=== PATIENT | female | born 1975 | race Caucasian/White ===

== ENCOUNTER 2018-07-07 21:43 | Emergency (ER) | payer MEDICARE, SELFPAY ==
[2018-07-07 21:45] VITALS: BP 133/78; PULSE 86; RESP 16; TEMP 37; O2SAT 98; BMI 29.1
--- NOTE | 2018-07-08 | ED.VISSUMM ---
- ER Visit Summary Date of Service: 07/08/18 Chief Complaint: Nausea with diffuse body cramps History of Present Illness: The patient is a 42 F history of prior sepsis for which she had amputations of multiple fingers and toes bilaterally. Patient has a colostomy from a colectomy. States that she has had nausea for the last 2 days decreased oral intake and feels dehydrated and cramping. She really denies any specific abdominal pain. No fever. No vomiting. Physical Examination: Stable afebrile. H EENT exam mildly dry mucous members. Neck nontender no lymphadenopathy. Heart regular rate and rhythm no murmur. Lungs bilaterally. Abdomen is soft, nontender, nondistended normal bowel sounds no peritoneal signs. Back nontender. She is moving all 4 extremities. All of her toes on both feet have been amputated. Multiple fingers on both hands been amputated. Neurologically she is awake and alert with no focal motor deficits. Test Results: Chemistry panel unremarkable gap is 9. Creatinine 0.6. Emergency Department Course and Treatment: Patient be treated with IV fluids and IV Phenergan. She will be given 1 dose of gabapentin which she normally takes with some she states still it several days ago and she has been out. She uses for her neuropathies. Treatment Plan: Repeat exam patient doing well. She will be discharged. Disposition: Discharge Impression: Nausea with diarrhea and dehydration secondary to viral syndrome Acute on chronic neuropathy pain This note was generated with [employer] dictation software. It may contain incorrect words, spelling, and punctuation that were not noted in review of the chart prior to signing ED Disposition - Plan for ED Patient: Chief Complaint: Weakness Referrals: Jim Mcfarland III, MD [Primary Care Provider] -
[2018-07-08] MEDS: proMETHazine 25 MG/ML Syringe 12.5 MG IV (00:24)
[2018-07-08] MEDS: 0.9% Normal Saline 1,000 ML 1000 ML IV (00:24)
[2018-07-08 00:43] LABS: Anion Gap 9 (5-15); BUN 15 mg/dL (7-18); Calcium,Total 7.9 mg/dL (8.5-10.1); Chloride 109 mmol/L (98-107); EST Glomerular Filtration Rate 117 mL/min (>60); Est Glom Filt Rate - Afr Amer 141 mL/min (>60); Estimated Creatinine Clearance 93.11 ml/min; Glucose 85 mg/dL (74-106); Potassium 3.8 mmol/L (3.5-5.1); Sodium Level 141 mmol/L (136-145)
[2018-07-08] MEDS: Gabapentin 600 MG Tablet PO (00:57)
[2018-07-08 02:33] VITALS: RESP 16; O2SAT 97
--- NOTE | 2018-07-08 03:19 | ED.DEP ---
ED Disposition - Plan for ED Patient: Disposition: Home or Assisted Living Chief Complaint: Weakness Instructions: ED Viral Syndrome Prescriptions: Gabapentin [Neurontin Solution] 300 mg PO TIDCM #20 ml Referrals: Jim Mcfarland III, MD [Primary Care Provider] - 3-5 Days if not improving Additional Instructions: Plenty of fluids and rest. Follow-up your primary care physician.
[2018-07-08 03:25] VITALS: BP 132/86; PULSE 78; RESP 16; O2SAT 100
[2018-07-08 06:36] VITALS: RESP 20
== END 2018-07-08 07:12 | disposition home or self-care (01) ==
PROVIDERS: Emergency Provider Emergency Medicine; Family Provider Family Medicine; PCP Family Medicine
DX: B34.9 Viral infection, unspecified (principal); R11.0 Nausea; R19.7 Diarrhea, unspecified; E86.0 Dehydration; E11.40 Type 2 diabetes mellitus with diabetic neuropathy, unspecified; K21.9 Gastro-esophageal reflux disease without esophagitis; Z93.3 Colostomy status; Z86.19 Personal history of other infectious and parasitic diseases; Z89.022 Acquired absence of left finger(s); Z89.021 Acquired absence of right finger(s); Z89.422 Acquired absence of other left toe(s); Z89.421 Acquired absence of other right toe(s); Z90.49 Acquired absence of other specified parts of digestive tract; Z79.899 Other long term (current) drug therapy; Z72.0 Tobacco use
CPT/HCPCS: 36591; 80048; 96374; 99284; J7030; A4216

== ENCOUNTER 2018-07-31 21:56 | Inpatient (IN) | payer MEDICARE, SELFPAY ==
[2018-07-31 21:57] VITALS: BP 94/55; PULSE 93; RESP 18; TEMP 36.5; O2SAT 98; BMI 25.4
[2018-07-31 23:09] LABS: Absolute Lymphocyte Count 0.68 X10^3/ul (0.83-4.51); Absolute Neutrophil Count 17.3 X10^3/uL (2.0-7.7); Basophil# 0.03 X10^3/uL; Basophil% 0.2 % (0-1); Eosinophils% 1.1 % (0-5); Hematocrit 34.5 % (37-47); Hemoglobin 11.8 g/dl (12.0-15.0); Lymphocyte # 0.68 X10^3/ul (4.0); Lymphocyte % 3.6 % (19-41); Mean Corp Hgb Conc 34.2 g/gl (32-36); Mean Corpuscular Hgb 27.2 pg (27.0-32.0); Mean Corpuscular Volume 79.5 fL (81-99); Mean Platelet Vol. 11.2 fl (6.2-12.0); Monocyte# 0.66 X10^3/uL; Monocyte% 3.5 % (0-10); Neutrophil # 17.25 X10^3/uL (2.7-7.7); Neutrophil % 90.7 % (47-70); Platelet Count 347 K/mm3 (150-450); RBC Distribution Width SD 45.5 fl (35.1-43.9); Red Blood Count 4.34 M/mm3 (4.2-5.4)
[2018-07-31 23:20] LABS: Anion Gap 17 (5-15); BUN 47 mg/dL (7-18); BUN/Creat Ratio 12.5 RATIO (10-20); Chloride 91 mmol/L (98-107); Creatinine, Serum 3.77 mg/dL (0.55-1.02); EST Glomerular Filtration Rate 14 mL/min (>60); Est Glom Filt Rate - Afr Amer 17 mL/min (>60); Estimated Creatinine Clearance 14.82 ml/min; Glucose 127 mg/dL (74-106); Lactic Acid 1.8 mmol/L (0.4-2.0); Potassium 1.8 mmol/L (3.5-5.1); Sodium Level 130 mmol/L (136-145)
--- NOTE | 2018-07-31 23:21 | ED.RN ---
lab called with critical lab results. potassium level 1.8. Dr. Liu made aware. no new orders at this time
[2018-07-31] MEDS: Ondansetron 4 MG/2 ML Vial IV (23:27)
[2018-07-31] MEDS: HYDROmorphone 1 MG/ML Syringe IV (23:27)
[2018-07-31 23:43] LABS: POSITIVE COUNT NO; POSITIVE DIFFERENTIAL NO; POSITIVE MORPHOLOGY NO
[2018-08-01] VITALS (16 sets, daily range): BP systolic 91–110; BP diastolic 40–59; PULSE 64–95; RESP 16–18; TEMP 36.7–37.1; O2SAT 94–100; BMI 25.9; BMI 26.0
--- NOTE | 2018-08-01 00:19 | ED.VISSUMM ---
- ER Visit Summary Date of Service: 08/01/18 Chief Complaint: [Redness and swelling left elbow] History of Present Illness: The patient is a 42 F [presents the emergency department with redness and swelling to her left elbow times week and a half. Patient denies any fevers. Patient also has had some ulcerations develop on her left hip which have been chronic. She denies any chest pain. She denies any abdominal pain. 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 Patient has had prior colectomy due to perforated colon. Patient does have an ileostomy.] Physical Examination: [HEENT-PERRLA, EOMI. Cranial nerves II through XII grossly intact. TMs clear. Mucous membranes slightly dry. No adenopathy. Cardiovascular-regular rate and rhythm without murmur or ectopy Lungs-clear to auscultation, chest wall stable without crepitus or subcu emphysema Abdomen-normoactive bowel sounds, soft, nontender, no rebound or rigidity, no peritoneal signs. Extremities-intact ?4, normal range of motion, normal pulses. Patient's digits on her hands have been amputated and toes have been amputated. Patient does have erythema and soft tissue swelling about the left elbow. She has a small ulceration over the olecranon but no drainage noted from it. No fluctuant masses noted. She is neurovascular intact. Test Results: [CBC with differential obtained showed a white count of 19,000, hemoglobin 11.8, hematocrit 34, platelets 347. Chemistry showed a sodium 130, potassium 1.8, chloride 91, CO2 22, glucose 127, BUN 47, creatinine 3.77. Lactate was 1.8.] Emergency Department Course and Treatment: [Patient was ordered Unasyn 3 g IV and blood cultures were ordered. Patient was given Dilaudid and Zofran for pain. Patient was ordered potassium chloride 40 mEq p.o. Patient was given a liter normal same fluid bolus.] Treatment Plan: [Admit for IV antibiotics and hydration as well as potassium replacement.] Disposition: [Admit] Impression: [Cellulitis left elbow Acute renal failure Hypokalemia] This note was generated with [employer] dictation software. It may contain incorrect words, spelling, and punctuation that were not noted in review of the chart prior to signing ED Disposition - Plan for ED Patient: Chief Complaint: Cellulitis Referrals: Jim Mcfarland III, MD [Primary Care Provider] -
--- NOTE | 2018-08-01 00:37 | NURSING ---
Called [facility] charge nurseselina to send patient to the floor.
[2018-08-01] MEDS: 0.9% Normal Saline 1,000 ML 999 ML IV (00:42)
--- NOTE | 2018-08-01 02:32 | HP.PCM_ITS ---
Problem List (1) Hypokalemia Status: Acute (2) Cellulitis of left elbow Status: Acute (3) Multiple wounds Status: Chronic (4) Acute renal failure Status: Acute History of Present Illness Date of Admission: 08/01/18 Chief Complaint: Redness, swelling and tenderness of left elbow. 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 She denies any fever or chills. 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) Hypothyroidism (Chronic) Depression (Chronic) Anemia (Chronic) Allergies morphine Adverse Reaction (Verified 07/31/18 21:59) Nausea Home Medications: Ambulatory Orders Medication Instructions Recorded Esomeprazole Mag Trihydrate 40 mg PO DAILY 12/25/13 [Nexium] Levothyroxine [Synthroid] 50 mcg PO DAILY@0600 #30 tablet 02/04/14 Gabapentin [Neurontin] 1,200 mg PO TID 03/13/14 proMETHazine tablet [Phenergan 25 mg PO Q6H PRN PRN #12 tablet 11/30/14 tablet] Hydrochlorothiazide [Hctz] 25 mg PO DAILY 06/12/15 Duloxetine Hcl [Cymbalta] 30 mg PO DAILY 07/21/15 Sumatriptan Succinate [Imitrex] 50 mg PO PRN PRN 07/21/15 Ibuprofen [Motrin Ib] 400 - 600 mg PO 4X/DAY PRN #1 06/08/16 tablet Surgical History: - - Laser surgery for genital warts. hemorrhoidectomy. fistulectomy. EGD. IUD placement. total colectomy with ileostomy. mid-level amputations of fingers and toes following pressure-support treatments for sepsis. tracheostomy. incision and drainage and excisional debridement including muscle post-traumatic hematoma/seroma left hip/lateral thigh extending onto anterior thigh and posterior thigh and gluteal area (750 cm2) in 01/08. excisional debridement nonhealing ulcer left hip with STSG reconstruction from left gluteal area (60 cm2) and placement of NPWT on 07/28/15. Smoking Status: Current every day smoker - Smokes cigarettes. Alcohol: Occasional - *Family History Paternal History Items: Heart Disease Maternal History Items: No pertinent history, - - Leesa-Danlos syndrome Review of Systems Constitutional: Denies: Chills, Fever, Weight Change HEENT: Denies: Head Aches, Sinus Congestion, Sinus Drainage Cardiovascular: Denies: Chest Pain, Palpitations Respiratory: Reports: Cough Gastrointestinal: Denies: Abdominal Pain, Nausea, Vomiting Genitourinary: Denies: Dysuria Musculoskeletal: Reports: - - Left elbow pain, - Skin: Reports: Skin Changes - Redness of left elbow; wound on left posterior hip ; multiple wounds on right posterio- lateral hip; ileostomy present Neurological: Denies: Numbness, Tingling, Focal weakness Psychiatric: Denies: Anxiety, Depression, Homicidal Ideations, Suicidal Ideations Hematologic/ Lymphatic: Denies: Easy Bruising, Easy Bleeding VTE Information - Inpt Only VTE Present on Admission: No VTE Mechan Device Prophylaxis: None VTE Pharm Prophylaxis ordered?: Yes Patient Problems: Active and Suspected Problems Hypokalemia (Acute) Cellulitis of left elbow (Acute) Acute renal failure (Acute) - Physical Exam General: Alert, Oriented x3, Cooperative HEENT: Atraumatic, PERRLA, EOMI, Normocephalic Neck: Supple, No JVD, Negative Carotid Bruits Lungs: Clear to auscultation, Normal air movement Cardiovascular: Regular rate, No murmurs Abdomen: Soft, - - Ostomy bag with greenish looking loose stools. Extremities: Tenderness - Posterior elbow, - - Loss of all toes on extremities Skin: Ulcer/ Wound - Right posterior hip with 1.5?1.5 cm pressure ulcer; left posterior lateral hip with multiple ulcer; largest of about 1.8?1 inch centimeters., - Lymphatic: No Cervical, Supraclavicular, or Inguinal Adenopathy Neurological: Cranial nerves II-XII grossly intact Psych/Mental Status: Normal Affect Vital Signs Temp Pulse Resp BP Pulse Ox 98.2 F 85 18 91/52 L 95 08/01/18 01:10 08/01/18 01:25 08/01/18 01:10 08/01/18 01:10 08/01/18 01:37 Oxygen Delivery Method Room Air Weight: 62.3 kg Body Mass Index (BMI) 25.9 Assessment/Plan All Active Problems Hypokalemia (Acute) Cellulitis of left elbow (Acute) Acute renal failure (Acute) Foot ulcer, right (Acute) The patient is a 42 year old F with a significant history of MRSA; Leesa- Danlos syndrome, previous colostomy due to perforated colon; ileostomy; 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 Cellulitis of left elbow Patient received Unasyn in the emergency department. Because of history of MRSA vancomycin ordered. Clindamycin ordered for possible strep toxins. As needed oxycodone for pain Blood cultures are pending. Hypokalemia Potassium on admission was 1.8. This may be likely to ileostomy output. Unlikely due to alcoholism; since magnesium is elevated. Potassium supplements ordered; IV and p.o. Trend BMP. Acute renal failure Creatinine on admission was 3.77 Her baseline creatinine is less than 1 Urine sodium and urine creatinine ordered for FENA Received normal saline bolus at emergency department. Gentle IV hydration. Hydrochlorothiazide held Avoid nephrotoxic's. He takes gabapentin for neuropathy. Home gabapentin dose reduced because of HPI. Hypertension Blood pressure is in the lower side. HCTZ held. Hyponatremia Likely due to output from ileostomy Mild Trend Multiple wounds and ileostomy Wound care consult. Depression Cymbalta continued Hypothyroidism Synthroid continued DVT prophylaxis Subcutaneous heparin. ; Code Visit Inpatient E&M: 06461 Init Hosp L3
[2018-08-01] MEDS: 0.9% Normal Saline 1,000 ML 100 ML IV (03:12)
[2018-08-01] MEDS: oxyCODONE 5 MG Tablet PO ×4 (03:33→22:42)
--- NOTE | 2018-08-01 04:16 | PCM.RX.CS ---
Consult Pharmacy has been consulted to manage selected antiobiotic: Vancomycin Type of Consult: New start Suspected Infection: Skin/Soft tissue Prior Doses of Antibiotics Received/Current Regimen: Medications Vancomycin HCl (Vancomycin) 1,000 mg in 200 mls @ 200 mls/hr IV X1 ONE Stop: 08/01/18 04:29 Labs: Sodium 130 mmol/L (136-145) L 07/31/18 22:45 Potassium 1.8 mmol/L (3.5-5.1) L* 07/31/18 22:45 Chloride 91 mmol/L (98-107) L 07/31/18 22:45 Carbon Dioxide 22.0 mmol/L (21.0-32.0) 07/31/18 22:45 Anion Gap 17 (5-15) H 07/31/18 22:45 BUN 47 mg/dL (7-18) H 07/31/18 22:45 Creatinine 3.77 mg/dL (0.55-1.02) H 07/31/18 22:45 Est GFR (MDRD) Af Amer 17 mL/min (>60) L 07/31/18 22:45 Est GFR (MDRD) Non-Af 14 mL/min (>60) L 07/31/18 22:45 BUN/Creatinine Ratio 12.5 RATIO (10-20) 07/31/18 22:45 Glucose 127 mg/dL (74-106) H 07/31/18 22:45 Weight used for dosin.3 kg Estimated Creatinine Clearance: 14.8 Goal Trough: 10-15 mcg/mL Pharmacy Plan for Drug Dosing: Initial 1000mg vancomycin ordered by body weight. Subsequent dosing will be pending random levels, due to CrCl=14.8. Pharmacy Service will continue to monitor and adjust dosing as required. Follow-Up Labs: Trough Vancomycin - random level Labs to be done on [date and time ordered]: 08/02/18 @0600
[2018-08-01] MEDS: Vancomycin IV 1,000 MG/200 ML BAG 200 MG IV (04:42)
[2018-08-01] MEDS: Levothyroxine 50 MCG Tablet PO (05:47)
[2018-08-01] MEDS: Heparin Injection (Vial) 5,000 UNIT/ML VIAL 5000 UNIT SC ×3 (05:47→22:46)
[2018-08-01 07:35] LABS: Anion Gap 11 (5-15); BUN 45 mg/dL (7-18); BUN/Creat Ratio 16.9 RATIO (10-20); Calcium,Total 6.7 mg/dL (8.5-10.1); Chloride 100 mmol/L (98-107); Creatinine, Serum 2.67 mg/dL (0.55-1.02); EST Glomerular Filtration Rate 21 mL/min (>60); Est Glom Filt Rate - Afr Amer 25 mL/min (>60); Estimated Creatinine Clearance 20.92 ml/min; Glucose 100 mg/dL (74-106); Hematocrit 29.1 % (37-47); Hemoglobin 9.7 g/dl (12.0-15.0); Mean Corp Hgb Conc 33.3 g/gl (32-36); Mean Corpuscular Hgb 26.6 pg (27.0-32.0); Mean Corpuscular Volume 79.7 fL (81-99); Mean Platelet Vol. 10.8 fl (6.2-12.0); Platelet Count 378 K/mm3 (150-450); Potassium 2.8 mmol/L (3.5-5.1); RBC Distribution Width CV 16.1 % (11.6-14.6); RBC Distribution Width SD 45.9 fl (35.1-43.9); Red Blood Count 3.65 M/mm3 (4.2-5.4); Sodium Level 132 mmol/L (136-145); White Blood Count 15.3 K/mm3 (4.4-11.0)
[2018-08-01 07:37] LABS: Scan Indicated on CBC? Y/N NO
[2018-08-01] MEDS: DULoxetine Hcl 30 MG Capsule PO (09:04)
[2018-08-01] MEDS: Gabapentin 100 MG Capsule 200 MG PO ×3 (09:04→16:07)
[2018-08-01] MEDS: Pantoprazole Sodium 40 MG Tablet PO (09:04)
[2018-08-01] MEDS: hydroCHLOROthiazide 25 MG Tablet PO (09:04)
[2018-08-01] MEDS: Multivitamins,Ther W-Minerals Tablet 1 TABLET PO (09:04)
[2018-08-01 09:50] LABS: Albumin, Serum 2.1 g/dL (3.2-5.0)
--- NOTE | 2018-08-01 11:48 | CASEMGMT ---
Face to Face with patient for initial transition planning/care coordination assessment. ANDREW LLANES introduced self and role at [facility], pt voices understanding and consents to assessment at this time. Pt is lying in bed in no distress at this time. Pt is A/O x4 at this time and answers all questions appropriately. Pt does fall asleep frequently during assessment. Care providers, pharmacy, and demographics verified. See attached link. Pt voices no further concerns/needs at this time. Advised pt to ask for CM if any further questions/concerns/needs arise, voices understanding. CM to follow for any further discharge planning/needs. PLAN: [place] ANDREW LLANES
--- NOTE | 2018-08-01 12:18 | PCM.CONS.GEN ---
Reason for Consult Date of Consultation: 08/01/18 Reason for Consultation: Left elbow pain History of Present Illness: The patient is a 42 year old F [with 5 day history of left elbow pain and redness after scratching her elbow, Denies fever,chills nausea or vomiting. Admitted for IV antibiotics and orthopedic consultation sought to r/o septic arthritis.] 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) Hypothyroidism (Chronic) Depression (Chronic) Anemia (Chronic) Allergies morphine Adverse Reaction (Verified 07/31/18 21:59) Nausea Home Medications: Ambulatory Orders Medication Instructions Recorded Esomeprazole Mag Trihydrate 40 mg PO DAILY 12/25/13 [Nexium] Levothyroxine [Synthroid] 50 mcg PO DAILY@0600 #30 tablet 02/04/14 Gabapentin [Neurontin] 1,200 mg PO TID 03/13/14 proMETHazine tablet [Phenergan 25 mg PO Q6H PRN PRN #12 tablet 11/30/14 tablet] Hydrochlorothiazide [Hctz] 25 mg PO DAILY 06/12/15 Duloxetine Hcl [Cymbalta] 30 mg PO DAILY 07/21/15 Sumatriptan Succinate [Imitrex] 50 mg PO PRN PRN 07/21/15 Ibuprofen [Motrin Ib] 400 - 600 mg PO 4X/DAY PRN #1 06/08/16 tablet Surgical History: - - Laser surgery for genital warts. hemorrhoidectomy. fistulectomy. EGD. IUD placement. total colectomy with ileostomy. mid-level amputations of fingers and toes following pressure-support treatments for sepsis. tracheostomy. incision and drainage and excisional debridement including muscle post-traumatic hematoma/seroma left hip/lateral thigh extending onto anterior thigh and posterior thigh and gluteal area (750 cm2) in 01/08. excisional debridement nonhealing ulcer left hip with STSG reconstruction from left gluteal area (60 cm2) and placement of NPWT on 07/28/15. Smoking Status: Current every day smoker Alcohol: Occasional - *Family History Paternal History Items: Heart Disease Maternal History Items: No pertinent history, - - Leesa-Danlos syndrome Patient Problems: Active and Suspected Problems Hypokalemia (Acute) Cellulitis of left elbow (Acute) Acute renal failure (Acute) - Physical Exam General: Alert, Oriented x3, Cooperative, No apparent distress Extremities: Tenderness - Left olecranaon bursa with swelling and primarily posterior and medial erythema. Gentle ROM and palpation of the joint well tolerated. Pain posteriorly with 120 degrees of flexion. Skin: Ulcer/ Wound - Two grade 2-3 decubitus ulceration left hip. No hip pain with ROM Vital Signs Temp Pulse Resp BP Pulse Ox 98.2 F 95 16 98/59 L 98 08/01/18 10:45 08/01/18 10:45 08/01/18 10:45 08/01/18 10:45 08/01/18 11:40 Oxygen Delivery Method Room Air Weight: 137 lb 5.568 oz Body Mass Index (BMI) 25.9 Intake and Output for Last 24 Hours 07/30/18 07/31/18 08/01/18 23:59 23:59 23:59 Intake Total 4716 / 4716 Balance 4716 / 4716 Laboratory Tests Past 24 Hrs 08/01/18 08/01/18 08/01/18 07:10 07:10 07:10 WBC 15.3 H RBC 3.65 L Hgb 9.7 L Hct 29.1 L MCV 79.7 L MCH 26.6 L MCHC 33.3 RDW 16.1 H RDW Differential 45.9 H Plt Count 378 MPV 10.8 Sodium 132 L Potassium 2.8 L Chloride 100 Carbon Dioxide 21.0 Anion Gap 11 BUN 45 H Creatinine 2.67 H Estim Creat Clear Calc 20.92 Est GFR (MDRD) Af Amer 25 L Est GFR (MDRD) Non-Af 21 L BUN/Creatinine Ratio 16.9 Glucose 100 Calcium 6.7 L Albumin 2.1 L Assessment/Plan All Active Problems Hypokalemia (Acute) Cellulitis of left elbow (Acute) Acute renal failure (Acute) Foot ulcer, right (Acute) Cellulitis with probal septic olecranon bursitis left elbow--no evidence for septic arthritis Will get an xray of left elbow to r/o fracture given patients history of Ehler's Danlos syndrome. Will monitor response to antibiotics closely. May need to go to OR for I&D of olecranon bursa if she does not respond well to IV antibiotics.
--- NOTE | 2018-08-01 13:08 | PCM.HP.ID ---
Problem List (1) Cellulitis of left elbow Status: Acute Reason for Consult: cellulitis Consulted by: Dr. Ring History of Present Illness: The patient is a 42 year old F with Leesa-Danlos who presented with one week of L elbow swelling, pain, redness. No drainage, but does have sore at tip of elbow. Some fever and chills. No inciting trauma but she does pick at her skin. Has other chronic ulcers on L lateral hip and posterior R thigh. Started taking clinda at home without improvement. Admitted here with GENI, put on vanc/clinda. Feeling about the same. Wbc and cr improved. No n/v/d. C/o pain and limited ROM with L elbow movement. Full ROS performed and neg except as noted above. - Medical History Past Medical History (Chronic Problems): Chronic Problems Multiple wounds (Chronic) H/O colectomy (Chronic) History of total colectomy (Chronic) History of pancreatitis (Chronic) Opioid dependence (Chronic) Smoker (Chronic) MRSA (methicillin resistant Staphylococcus aureus) infection (Chronic) nonhealing ulcer left hip (Chronic) Leesa-Danlos disease (Chronic) Hypothyroidism (Chronic) Depression (Chronic) Anemia (Chronic) Allergies/Adverse Reactions: Allergies morphine Adverse Reaction (Verified 07/31/18 21:59) Nausea Home Medications: Ambulatory Orders Medication Instructions Recorded Esomeprazole Mag Trihydrate 40 mg PO DAILY 12/25/13 [Nexium] Levothyroxine [Synthroid] 50 mcg PO DAILY@0600 #30 tablet 02/04/14 Gabapentin [Neurontin] 1,200 mg PO TID 03/13/14 proMETHazine tablet [Phenergan 25 mg PO Q6H PRN PRN #12 tablet 11/30/14 tablet] Hydrochlorothiazide [Hctz] 25 mg PO DAILY 06/12/15 Duloxetine Hcl [Cymbalta] 30 mg PO DAILY 07/21/15 Sumatriptan Succinate [Imitrex] 50 mg PO PRN PRN 07/21/15 Ibuprofen [Motrin Ib] 400 - 600 mg PO 4X/DAY PRN #1 06/08/16 tablet - Social History SMOKING STATUS:: Current every day smoker - Patient smoked for 16 pack years and just recently quit Vital Signs Temp Pulse Resp BP Pulse Ox 98.2 F 84 16 98/59 L 98 08/01/18 10:45 08/01/18 11:51 08/01/18 10:45 08/01/18 10:45 08/01/18 11:40 Oxygen Delivery Method Room Air Weight: 62.3 kg Body Mass Index (BMI) 25.9 Laboratory Tests Past 24 Hrs 08/01/18 08/01/18 08/01/18 07:10 07:10 07:10 WBC 15.3 H RBC 3.65 L Hgb 9.7 L Hct 29.1 L MCV 79.7 L MCH 26.6 L MCHC 33.3 RDW 16.1 H RDW Differential 45.9 H Plt Count 378 MPV 10.8 Sodium 132 L Potassium 2.8 L Chloride 100 Carbon Dioxide 21.0 Anion Gap 11 BUN 45 H Creatinine 2.67 H Estim Creat Clear Calc 20.92 Est GFR (MDRD) Af Amer 25 L Est GFR (MDRD) Non-Af 21 L BUN/Creatinine Ratio 16.9 Glucose 100 Calcium 6.7 L Albumin 2.1 L - Other Studies Radiology: [] reviewed Other Studies: [] Route of nutrition/ use of supplements: [] Nutritional Intake: [] IV Site: [] Odom Catheter: [] - Physical Exam General: Alert, Oriented x3, Cooperative, No apparent distress HEENT: Atraumatic, PERRLA, EOMI Neck: Supple, No Nodes Lungs: Clear to auscultation, Normal air movement Cardiovascular: Regular rate, Regular Rhythm Abdomen: Soft, Non Tender, Non-Distended, - - ostomy Extremities: No edema Skin: Ulcer/ Wound - multiple ulcers on L lateral hip and one on posterior R thigh, no redness. IV Site: - - LUE port, no redness or tenderness. Near area of cellulitis. Musculoskeletal: - - L elbow with swelling, redness, tenderness Neurological: Cranial nerves II-XII grossly intact - Assessment/Plan Antibiotics: [] Assessment/Plan: [] Active and Suspected Problems Hypokalemia (Acute) Cellulitis of left elbow (Acute) Acute renal failure (Acute) L elbow cellulitis with concern for deeper infection - wbc improving. Has h/o MRSA. Recommended ortho eval, appreciate Dr. Frost's note. Xray pending. May need surgical debridement. Cont vanc/clinda. GENI - improving Skin ulcers - recommend wound care eval. Has seen Dr. Elias in past. Will follow, thank you, d/w Dr. Ring
--- NOTE | 2018-08-01 14:21 | NURSING ---
wound photo: left elbow
--- NOTE | 2018-08-01 14:22 | NURSING ---
wound photo: left hip
--- NOTE | 2018-08-01 14:22 | NURSING ---
wound photo: right inner thigh
[2018-08-01 14:37] LABS: M R Staph aureus DNA By PCR POSITIVE (Negative); Probe Check PASS; Staph aureus DNA By PCR POSITIVE (Negative)
[2018-08-01] MEDS: proMETHazine 25 MG Tablet PO (16:09)
--- NOTE | 2018-08-01 17:14 | PCM.PN.HOSP ---
Patient Problems: Active and Suspected Problems Hypokalemia (Acute) Cellulitis of left elbow (Acute) Acute renal failure (Acute) Subjective: Patient has history of recurrent admission for cellulitis, last one in May 2016. This time, patient scratch her left elbow about 5-7 days ago and started having swelling, redness pain suggestive of cellulitis and spreading proximally to left upper arm. She denies any fever or chills. Vitals/I&O's: Vital Signs Temp Pulse Resp BP Pulse Ox 98.2 F 89 18 110/59 L 94 08/01/18 16:25 08/01/18 16:25 08/01/18 16:25 08/01/18 16:25 08/01/18 16:25 Oxygen Delivery Method Room Air Weight: 137 lb 5.568 oz Body Mass Index (BMI) 25.9 Intake and Output for Last 24 Hours 07/30/18 07/31/18 08/01/18 23:59 23:59 23:59 Intake Total 4716 / 4716 Balance 4716 / 4716 General: Alert, Oriented x3, Cooperative HEENT: Atraumatic, PERRLA, EOMI, Normocephalic Neck: Supple, No JVD, Negative Carotid Bruits Lungs: Clear to auscultation, Normal air movement Cardiovascular: Regular rate, No murmurs Abdomen: Bowel Sounds Present, Soft, Non Tender Extremities: No edema, Capillary Refill Less than 3 Seconds, - - Multiple toes and fingers are amputated. Bilateral transmetatarsal amputation. History of recurrent MRSA infection. Skin: Ulcer/ Wound - Subcutaneous 2 muscle deep left posterolateral proximal thigh and hip chronic tubal ulcer, largest about 1.8 x 1 inch covered with slough., Rash Present - Colitis or left elbow. Musculoskeletal: No Tenderness to Palpation of Joints or Extremities Neurological: Cranial nerves II-XII grossly intact Psych/Mental Status: Normal Affect, Appropriate Laboratory Results 08/01/18 07:10: WBC 15.3 H, RBC 3.65 L, Hgb 9.7 L, Hct 29.1 L, MCV 79.7 L, MCH 26.6 L, MCHC 33.3, RDW 16.1 H, RDW Differential 45.9 H, Plt Count 378, MPV 10.8 08/01/18 07:10: Sodium 132 L, Potassium 2.8 L, Chloride 100, Carbon Dioxide 21.0, Anion Gap 11, BUN 45 H, Creatinine 2.67 H, Estim Creat Clear Calc 20.92, Est GFR (MDRD) Af Amer 25 L, Est GFR (MDRD) Non-Af 21 L, BUN/Creatinine Ratio 16.9, Glucose 100, Calcium 6.7 L 08/01/18 07:10: Albumin 2.1 L 08/01/18 12:50: S.aureus Protein A PCR POSITIVE H, MRSA (PCR) POSITIVE H Current Medications Acetaminophen (Tylenol) 650 mg PO Q6H PRN PRN PRN Reason: Mild Pain (scale 0-3)/T>100.7 Duloxetine HCl (Cymbalta) 30 mg PO DAILY [facility] Last Admin: 08/01/18 09:04 Dose: 30 mg Gabapentin (Neurontin) 200 mg PO TIDCM [facility] Last Admin: 08/01/18 16:07 Dose: 200 mg Heparin Sodium (Porcine) (Heparin Na) 5,000 unit SC Q8 [facility] Last Admin: 08/01/18 15:06 Dose: 5,000 unit Clindamycin Phosphate 600 mg/ (Dextrose) 54 mls @ 100 mls/hr IV Q8 [facility] Last Admin: 08/01/18 03:25 Dose: 100 mls/hr Vancomycin IV Pharmacy to Dose (1,000 ea/ Sodium Chloride) 500 mls @ 250 mls/hr IV X1 PRN; Protocol PRN Reason: Rx to Dose Levothyroxine Sodium (Synthroid) 50 mcg PO DAILY@0600 [facility] Last Admin: 08/01/18 05:47 Dose: 50 mcg Magnesium Hydroxide (Milk Of Magnesia) 30 ml PO DAILY PRN PRN Reason: Constipation Multivitamins/Minerals (Multivitamin With Minerals) 1 tablet PO DAILYCM [facility] Last Admin: 08/01/18 09:04 Dose: 1 tablet Nutritional Formula (Lactose Free) (Ensure Enlive) 120 ml PO 4X/DAY [facility] Last Admin: 08/01/18 13:35 Dose: Not Given Ondansetron HCl (Zofran) 4 mg IV Q8H PRN PRN PRN Reason: Nausea Oxycodone HCl (Oxyir) 5 mg PO Q4H PRN PRN PRN Reason: Moderate Pain (pain scale 4-5) Last Admin: 08/01/18 16:08 Dose: 5 mg Pantoprazole Sodium (Protonix) 40 mg PO DAILY [facility] Last Admin: 08/01/18 09:04 Dose: 40 mg Potassium Chloride (K-Dur) 40 meq PO BIDCM [facility] Last Admin: 08/01/18 16:07 Dose: 40 meq Promethazine HCl (Phenergan Tablet) 25 mg PO Q6H PRN PRN PRN Reason: NAUSEA Last Admin: 08/01/18 16:09 Dose: 25 mg Rizatriptan Benzoate (Maxalt) 10 mg PO DAILY PRN PRN PRN Reason: HEADACHE Sodium Chloride () 5 - 30 ml IV UD PRN PRN Reason: SALINE FLUSH Medical Necessity - Tobacco Use Smoking Status: Current every day smoker Assessment/Plan All Active Problems Hypokalemia (Acute) Cellulitis of left elbow (Acute) Acute renal failure (Acute) Foot ulcer, right (Acute) The patient is a 42 year old F with a significant history of MRSA; Leesa-Danlos syndrome, 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 Patient does not have good IV access. She has MediPort on the left arm. As it is near to the cellulitis region, it is not being used. Right forearm midline ordered. 1. SIRS (tachycardia and leukocytosis with left shift) due to cellulitis of left elbow and bursitis, most probably MRSA/Step: The patient was given IV Unasyn ER and currently on vancomycin for history of MRSA in the past and clindamycin for toxin in remission. Discussed with ID and orthopedic surgeon and consults appreciated. Left elbow and humerus x-ray shows soft tissue swelling without underlying bone or joint abnormality. Dr. Rudd agree with vancomycin and clindamycin. Does not think left arm MediPort is infected. discussed with Dr. Frost he thinks it is bursitis but not involvement of the elbow joint. Does not think she needs suspicion now but follow-up tomorrow to assess for need for drainage. Blood cultures are pending. Pain control. 2. Acute kidney injury: Patient creatinine on admission was 3.77 with baseline less than 1. On IV fluid normal saline. Hold nephrotoxic medications including diuretics HCTZ. 3. Electrolyte imbalance: Hyponatremia and hypokalemia probably secondary to high output ileostomy: Potassium on admission was 1.8. This may be likely to ileostomy output. IV fluid normal saline. Unlikely due to alcoholism; since magnesium is elevated. Potassium supplements ordered; IV and p.o. monitor potassium. Multiple wounds with the largest one in the left posterolateral aspect of the hip and thigh: Wound care consult. Wound dressing. Other comorbidities include hypertension, multiple wounds, ileostomy, Leesa-Danlos syndrome with poor wound healing, depression, hypothyroidism and noncompliance: Home medication reconciliation done. multiple comorbidities complicates the present care and expect difficult and delay recovery. DVT prophylaxis: On subcutaneous heparin. Laboratory Results 07/31/18 22:45: WBC 19.0 H, RBC 4.34, Hgb 11.8 L, Hct 34.5 L, MCV 79.5 L, MCH 27.2, MCHC 34.2, RDW 16.0 H, RDW Differential 45.5 H, Plt Count 347, MPV 11.2, Immature Gran % (Auto) 0.900, Neut % (Auto) 90.7 H, Lymph % (Auto) 3.6 L, [place] % (Auto) 3.5, Eos % (Auto) 1.1, Baso % (Auto) 0.2, Absolute Neuts (auto) 17.3 H, Absolute Lymphs (auto) 0.68 L, Total Counted Not Reportable 07/31/18 22:45: Sodium 130 L, Potassium 1.8 L*, Chloride 91 L, Carbon Dioxide 22.0, Anion Gap 17 H, BUN 47 H, Creatinine 3.77 H, Estim Creat Clear Calc 14.82, Est GFR (MDRD) Af Amer 17 L, Est GFR (MDRD) Non-Af 14 L, BUN/Creatinine Ratio 12.5, Glucose 127 H, Calcium 8.0 L 07/31/18 22:45: Lactic Acid 1.8 07/31/18 22:45: Magnesium 3.0 H 08/01/18 07:10: WBC 15.3 H, RBC 3.65 L, Hgb 9.7 L, Hct 29.1 L, MCV 79.7 L, MCH 26.6 L, MCHC 33.3, RDW 16.1 H, RDW Differential 45.9 H, Plt Count 378, MPV 10.8 08/01/18 07:10: Sodium 132 L, Potassium 2.8 L, Chloride 100, Carbon Dioxide 21.0, Anion Gap 11, BUN 45 H, Creatinine 2.67 H, Estim Creat Clear Calc 20.92, Est GFR (MDRD) Af Amer 25 L, Est GFR (MDRD) Non-Af 21 L, BUN/Creatinine Ratio 16.9, Glucose 100, Calcium 6.7 L 08/01/18 07:10: Albumin 2.1 L 08/01/18 12:50: S.aureus Protein A PCR POSITIVE H, MRSA (PCR) POSITIVE H Clinical Impression(s) from Imaging Studies Humerus X-Ray 08/01/18 11:40 IMPRESSION: Diffuse nonspecific soft tissue swelling without underlying bone or joint abnormality. Electronically Signed: Radhika Pichardo MD at 15:17 EDT , Service support , Elbow X-Ray 08/01/18 13:11 IMPRESSION: Diffuse soft tissue swelling without underlying bone or joint abnormality. Code Visit Inpatient E&M: 77352 Subs Hosp L3
--- NOTE | 2018-08-01 17:36 | NURSING ---
IV MEDICATIONS ADMINISTERED LATE DUE TO NO IV ACCESS, THREAD MACHINE OPERATOR NOT AVAILABLE UNTIL AFTER 1800, DR. DAVIES AWARE.
--- NOTE | 2018-08-01 19:54 | NURSING ---
PT CARE, ASSESSMENT, AND MEDICATION ADMINISTRATION COMPLETED UNDER THE SUPERVISION OF THIS RN.
[2018-08-01] MEDS: 0.9% NaCl Peripheral Flush Adult/Peds IV (23:07)
[2018-08-02] VITALS (11 sets, daily range): BP systolic 104–130; BP diastolic 51–58; PULSE 79–104; RESP 16–18; TEMP 36.8–37.3; O2SAT 96–100
[2018-08-02] MEDS: oxyCODONE 5 MG Tablet PO ×4 (03:29→21:39)
[2018-08-02 05:55] LABS: Absolute Lymphocyte Count 1.06 X10^3/ul (0.83-4.51); Absolute Neutrophil Count 9.9 X10^3/uL (2.0-7.7); Basophil# 0.01 X10^3/uL; Basophil% 0.1 % (0-1); Eosinophil# 0.17 X10^3/uL; Eosinophils% 1.4 % (0-5); Hematocrit 29.6 % (37-47); Hemoglobin 9.6 g/dl (12.0-15.0); Lymphocyte # 1.06 X10^3/ul (4.0); Mean Corp Hgb Conc 32.4 g/gl (32-36); Mean Corpuscular Hgb 26.1 pg (27.0-32.0); Mean Corpuscular Volume 80.4 fL (81-99); Mean Platelet Vol. 9.8 fl (6.2-12.0); Monocyte# 0.59 X10^3/uL; Neutrophil # 9.86 X10^3/uL (2.7-7.7); Neutrophil % 83.6 % (47-70); Platelet Count 431 K/mm3 (150-450); RBC Distribution Width CV 16.5 % (11.6-14.6); RBC Distribution Width SD 48.5 fl (35.1-43.9); Red Blood Count 3.68 M/mm3 (4.2-5.4); White Blood Count 11.8 K/mm3 (4.4-11.0)
[2018-08-02 06:02] LABS: POSITIVE COUNT NO; POSITIVE DIFFERENTIAL NO; POSITIVE MORPHOLOGY NO
[2018-08-02] MEDS: Heparin Injection (Vial) 5,000 UNIT/ML VIAL 5000 UNIT SC ×3 (06:08→21:40)
[2018-08-02] MEDS: Levothyroxine 50 MCG Tablet PO (06:09)
[2018-08-02 06:31] LABS: Vancomycin, Random Level 9.5 ug/mL (0.0-15.0)
[2018-08-02 06:34] LABS: Anion Gap 10 (5-15); BUN 36 mg/dL (7-18); BUN/Creat Ratio 27.9 RATIO (10-20); Calcium,Total 8.1 mg/dL (8.5-10.1); Chloride 101 mmol/L (98-107); Creatinine, Serum 1.29 mg/dL (0.55-1.02); EST Glomerular Filtration Rate 48 mL/min (>60); Est Glom Filt Rate - Afr Amer 58 mL/min (>60); Estimated Creatinine Clearance 43.31 ml/min; Glucose 93 mg/dL (74-106); Potassium 2.6 mmol/L (3.5-5.1); Sodium Level 135 mmol/L (136-145)
--- NOTE | 2018-08-02 07:21 | PCM.RX.CS ---
Consult Pharmacy has been consulted to manage selected antiobiotic: Vancomycin Type of Consult: Follow-up Suspected Infection: Skin/Soft tissue Prior Doses of Antibiotics Received/Current Regimen: Medications Vancomycin HCl 750 mg/ Sodium (Chloride) 265 mls @ 250 mls/hr IV Q24H [facility] Labs: Sodium 135 mmol/L (136-145) L 08/02/18 05:21 Potassium 2.6 mmol/L (3.5-5.1) L* 08/02/18 05:21 Chloride 101 mmol/L (98-107) 08/02/18 05:21 Carbon Dioxide 24.0 mmol/L (21.0-32.0) 08/02/18 05:21 Anion Gap 10 (5-15) 08/02/18 05:21 BUN 36 mg/dL (7-18) H 08/02/18 05:21 Creatinine 1.29 mg/dL (0.55-1.02) H 08/02/18 05:21 Est GFR (MDRD) Af Amer 58 mL/min (>60) L 08/02/18 05:21 Est GFR (MDRD) Non-Af 48 mL/min (>60) L 08/02/18 05:21 BUN/Creatinine Ratio 27.9 RATIO (10-20) H 08/02/18 05:21 Glucose 93 mg/dL (74-106) 08/02/18 05:21 Random Vancomycin 9.5 ug/mL (0.0-15.0) 08/02/18 05:21 Weight used for dosin.3 kg Estimated Creatinine Clearance: 43 Goal Trough: 10-15 mcg/mL Pharmacy Plan for Drug Dosing: Random vanco level was 9.5. CrCl increased up to 43, so vancomycin 750mg q24h was added. Will draw trough with 3rd dose. Pharmacy Service will continue to monitor and adjust dosing as required. Follow-Up Labs: Trough Vancomycin Labs to be done on [date and time ordered]: 08/04/18 @5509
--- NOTE | 2018-08-02 07:59 | PCM.PN.ORT ---
Patient Problems: Active and Suspected Problems Hypokalemia (Acute) Cellulitis of left elbow (Acute) Acute renal failure (Acute) Subjective: Patient feels about the same. No fevers or chills. Complains of pain at left elbow. - Physical Exam General: Alert, Oriented x3, No apparent distress HEENT: Atraumatic Oral: Moist Mucosa Extremities: Tenderness - At olecranon. Gentle ROM of left elbow well tolerated. Erythema not advanced nor significantly receded from yesterday. Vital Signs Temp Pulse Resp BP Pulse Ox 98.6 F 79 18 112/56 L 96 08/02/18 03:45 08/02/18 06:55 08/02/18 03:45 08/02/18 03:45 08/02/18 03:45 Oxygen Delivery Method Room Air Weight: 137 lb 5.568 oz Body Mass Index (BMI) 25.9 Intake and Output for Last 24 Hours 07/31/18 08/01/18 08/02/18 23:59 23:59 23:59 Intake Total 5196 / 5196 1159.8 / 1159.8 Balance 5196 / 5196 1159.8 / 1159.8 Laboratory Tests Past 24 Hrs 08/01/18 08/01/18 08/02/18 07:10 12:50 05:21 WBC RBC Hgb Hct MCV MCH MCHC RDW RDW Differential Plt Count MPV Immature Gran % (Auto) Neut % (Auto) Lymph % (Auto) [place] % (Auto) Eos % (Auto) Baso % (Auto) Absolute Neuts (auto) Absolute Lymphs (auto) Total Counted Sodium Potassium Chloride Carbon Dioxide Anion Gap BUN Creatinine Estim Creat Clear Calc Est GFR (MDRD) Af Amer Est GFR (MDRD) Non-Af BUN/Creatinine Ratio Glucose Calcium Albumin 2.1 L Random Vancomycin 9.5 S.aureus Protein A PCR POSITIVE H MRSA (PCR) POSITIVE H 08/02/18 08/02/18 05:21 05:21 WBC 11.8 H RBC 3.68 L Hgb 9.6 L Hct 29.6 L MCV 80.4 L MCH 26.1 L MCHC 32.4 RDW 16.5 H RDW Differential 48.5 H Plt Count 431 MPV 9.8 Immature Gran % (Auto) 0.900 Neut % (Auto) 83.6 H Lymph % (Auto) 9.0 L [place] % (Auto) 5.0 Eos % (Auto) 1.4 Baso % (Auto) 0.1 Absolute Neuts (auto) 9.9 H Absolute Lymphs (auto) 1.06 Total Counted Not Reportable Sodium 135 L Potassium 2.6 L* Chloride 101 Carbon Dioxide 24.0 Anion Gap 10 BUN 36 H Creatinine 1.29 H Estim Creat Clear Calc 43.31 Est GFR (MDRD) Af Amer 58 L Est GFR (MDRD) Non-Af 48 L BUN/Creatinine Ratio 27.9 H Glucose 93 Calcium 8.1 L Albumin Random Vancomycin S.aureus Protein A PCR MRSA (PCR) Medical Necessity - Tobacco Use Smoking Status: Current every day smoker Assessment/Plan All Active Problems Hypokalemia (Acute) Cellulitis of left elbow (Acute) Acute renal failure (Acute) Foot ulcer, right (Acute) Septic olecranon bursitis with cellulitis left elbow WBC count improving and afebrile. Will monitor on IV antibiotics, if worsening erythema, pain, elevating white count or increased temp will take to OR for surgical debridement.
[2018-08-02] MEDS: Pantoprazole Sodium 40 MG Tablet PO (09:27)
[2018-08-02] MEDS: DULoxetine Hcl 30 MG Capsule PO (09:27)
[2018-08-02] MEDS: proMETHazine 25 MG Tablet PO ×2 (09:27→21:39)
[2018-08-02] MEDS: Gabapentin 100 MG Capsule 200 MG PO ×3 (09:27→16:53)
[2018-08-02] MEDS: Multivitamins,Ther W-Minerals Tablet 1 TABLET PO (09:27)
[2018-08-02 09:37] LABS: Magnesium 2.3 mg/dL (1.6-2.6); Phosphorus 3.2 mg/dL (2.5-4.9)
--- NOTE | 2018-08-02 16:24 | PCM.PN.HOSP ---
Patient Problems: Active and Suspected Problems Hypokalemia (Acute) Cellulitis of left elbow (Acute) Acute renal failure (Acute) Subjective: No fever. Patient is still has significant left elbow pain with swelling and erythema. Discussed with orthopedic surgeon, Dr. Frost Objective: General: Alert, Oriented x3, Cooperative HEENT: Atraumatic, PERRLA, EOMI, Normocephalic Neck: Supple, No JVD, Negative Carotid Bruits Lungs: Clear to auscultation, Normal air movement Cardiovascular: Regular rate, No murmurs Abdomen: Bowel Sounds Present, Soft, Non Tender Extremities: No edema, Capillary Refill Less than 3 Seconds, - - Multiple toes and fingers are amputated. Bilateral transmetatarsal amputation. History of recurrent MRSA infection. Skin: Ulcer/ Wound - muscle deep left posterolateral proximal thigh and hip chronic tubal ulcer, largest about 1.8 x 1 inch covered with slough., Rash Present - Colitis or left elbow. Musculoskeletal: Left elbow and left forearm tenderness with swelling and decreased range of motion Neurological: Cranial nerves II-XII grossly intact Psych/Mental Status: Normal Affect, Appropriate Vitals/I&O's: Vital Signs Temp Pulse Resp BP Pulse Ox 98.6 F 98 16 104/54 L 99 08/02/18 15:20 08/02/18 15:27 08/02/18 15:20 08/02/18 15:20 08/02/18 15:20 Oxygen Delivery Method Room Air Weight: 137 lb 5.568 oz Body Mass Index (BMI) 25.9 Intake and Output for Last 24 Hours 07/31/18 08/01/18 08/02/18 23:59 23:59 23:59 Intake Total 6 / 5196 1961.8 / 1961.8 Balance 6 / 5196 1961.8 / 1961.8 Laboratory Results 08/02/18 05:21: Random Vancomycin 9.5 08/02/18 05:21: WBC 11.8 H, RBC 3.68 L, Hgb 9.6 L, Hct 29.6 L, MCV 80.4 L, MCH 26.1 L, MCHC 32.4, RDW 16.5 H, RDW Differential 48.5 H, Plt Count 431, MPV 9.8, Immature Gran % (Auto) 0.900, Neut % (Auto) 83.6 H, Lymph % (Auto) 9.0 L, [place] % (Auto) 5.0, Eos % (Auto) 1.4, Baso % (Auto) 0.1, Absolute Neuts (auto) 9.9 H, Absolute Lymphs (auto) 1.06, Total Counted Not Reportable 08/02/18 05:21: Sodium 135 L, Potassium 2.6 L*, Chloride 101, Carbon Dioxide 24.0, Anion Gap 10, BUN 36 H, Creatinine 1.29 H, Estim Creat Clear Calc 43.31, Est GFR (MDRD) Af Amer 58 L, Est GFR (MDRD) Non-Af 48 L, BUN/Creatinine Ratio 27.9 H, Glucose 93, Calcium 8.1 L 08/02/18 05:21: Phosphorus 3.2, Magnesium 2.3 Current Medications Acetaminophen (Tylenol) 650 mg PO Q6H PRN PRN PRN Reason: Mild Pain (scale 0-3)/T>100.7 Duloxetine HCl (Cymbalta) 30 mg PO DAILY [facility] Last Admin: 08/02/18 09:27 Dose: 30 mg Gabapentin (Neurontin) 200 mg PO TIDCM [facility] Last Admin: 08/02/18 11:26 Dose: 200 mg Heparin Sodium (Porcine) (Heparin Na) 5,000 unit SC Q8 [facility] Last Admin: 08/02/18 14:09 Dose: 5,000 unit Vancomycin IV Pharmacy to Dose (1,000 ea/ Sodium Chloride) 500 mls @ 250 mls/hr IV X1 PRN; Protocol PRN Reason: Rx to Dose Clindamycin Phosphate 600 mg/ (Dextrose) 54 mls @ 100 mls/hr IV Q8 [facility] Last Admin: 08/02/18 14:09 Dose: 100 mls/hr Vancomycin HCl 750 mg/ Sodium (Chloride) 265 mls @ 250 mls/hr IV Q24H [facility] Last Admin: 08/02/18 09:22 Dose: 250 mls/hr Lactobacillus Acidophilus (Acidophilus) 1 tablet PO TID [facility] Last Admin: 08/02/18 14:09 Dose: 1 tablet Levothyroxine Sodium (Synthroid) 50 mcg PO DAILY@0600 [facility] Last Admin: 08/02/18 06:09 Dose: 50 mcg Magnesium Hydroxide (Milk Of Magnesia) 30 ml PO DAILY PRN PRN Reason: Constipation Multivitamins/Minerals ([facility] With [facility]) [facility] Last Admin: 08/02/18 09:27 Dose: 1 tablet Nutritional Formula (Lactose Free) (Ensure Enlive) 120 ml PO 4X/DAY [facility] Last Admin: 08/02/18 14:10 Dose: Not Given Ondansetron HCl (Zofran) 4 mg IV Q8H PRN PRN PRN Reason: Nausea Oxycodone HCl (Oxyir) 5 mg PO Q4H PRN PRN PRN Reason: Moderate Pain (pain scale 4-5) Last Admin: 08/02/18 14:09 Dose: 5 mg Pantoprazole Sodium (Protonix) 40 mg PO DAILY [facility] Last Admin: 08/02/18 09:27 Dose: 40 mg Potassium Chloride (K-Dur) [facility] Last Admin: 08/01/18 16:07 Dose: 40 meq Promethazine HCl (Phenergan Tablet) 25 mg PO Q6H PRN PRN PRN Reason: NAUSEA Last Admin: 08/02/18 09:27 Dose: 25 mg Rizatriptan Benzoate (Maxalt) 10 mg PO DAILY PRN PRN PRN Reason: HEADACHE Sodium Chloride () 5 - 30 ml IV UD PRN PRN Reason: SALINE FLUSH Last Admin: 08/01/18 23:07 Dose: 10 ml Medical Necessity - Tobacco Use Smoking Status: Current every day smoker Assessment/Plan All Active Problems Hypokalemia (Acute) Cellulitis of left elbow (Acute) Acute renal failure (Acute) Foot ulcer, right (Acute) The patient is a 42 year old F with a significant history of MRSA; Leesa-Danlos syndrome, 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 Patient does not have good IV access. She has MediPort on the left arm. As it is near to the cellulitis region, it is not being used. 1. SIRS (tachycardia and leukocytosis with left shift) due to cellulitis of left elbow and bursitis, most probably MRSA/Step: The patient was given IV Unasyn ER and currently on vancomycin for history of MRSA in the past and clindamycin for toxin in remission. Discussed with ID and orthopedic surgeon and consults appreciated. Left elbow and humerus x-ray shows soft tissue swelling without underlying bone or joint abnormality. Dr. Rudd agree with vancomycin and clindamycin. Does not think left arm MediPort is infected. discussed with Dr. Frost he thinks it is bursitis but not involvement of the elbow joint. Does not think she needs suspicion now but follow-up tomorrow to assess for need for drainage. Blood cultures are pending. Pain control. 2. Acute kidney injury: Patient creatinine on admission was 3.77 with baseline less than 1. On IV fluid normal saline. Hold nephrotoxic medications including diuretics HCTZ. Patient has right forearm midline. 3. Electrolyte imbalance: Hyponatremia and moderate to severely hypokalemia probably secondary to high output ileostomy: Potassium on admission was 1.8. Repeat potassium still low but improved 2.6. This may be likely to ileostomy output. IV fluid normal saline. Unlikely due to alcoholism; since magnesium is elevated. Potassium supplements ordered; IV and p.o. monitor potassium. Multiple wounds with the largest one in the left posterolateral aspect of the hip and thigh: Wound care consult. Wound dressing. Other comorbidities include hypertension, multiple wounds, ileostomy, Leesa-Danlos syndrome with poor wound healing, depression, hypothyroidism and noncompliance: Home medication reconciliation done. multiple comorbidities complicates the present care and expect difficult and delay recovery. DVT prophylaxis: On subcutaneous heparin. Laboratory Results 08/02/18 05:21: Random Vancomycin 9.5 08/02/18 05:21: WBC 11.8 H, RBC 3.68 L, Hgb 9.6 L, Hct 29.6 L, MCV 80.4 L, MCH 26.1 L, MCHC 32.4, RDW 16.5 H, RDW Differential 48.5 H, Plt Count 431, MPV 9.8, Immature Gran % (Auto) 0.900, Neut % (Auto) 83.6 H, Lymph % (Auto) 9.0 L, [place] % (Auto) 5.0, Eos % (Auto) 1.4, Baso % (Auto) 0.1, Absolute Neuts (auto) 9.9 H, Absolute Lymphs (auto) 1.06, Total Counted Not Reportable 08/02/18 05:21: Sodium 135 L, Potassium 2.6 L*, Chloride 101, Carbon Dioxide 24.0, Anion Gap 10, BUN 36 H, Creatinine 1.29 H, Estim Creat Clear Calc 43.31, Est GFR (MDRD) Af Amer 58 L, Est GFR (MDRD) Non-Af 48 L, BUN/Creatinine Ratio 27.9 H, Glucose 93, Calcium 8.1 L 08/02/18 05:21: Phosphorus 3.2, Magnesium 2.3 Clinical Impression(s) from Imaging Studies Humerus X-Ray 08/01/18 11:40 IMPRESSION: Diffuse nonspecific soft tissue swelling without underlying bone or joint abnormality. Electronically Signed: Radhika Pichardo MD at 15:17 EDT , Service support , Elbow X-Ray 08/01/18 13:11 IMPRESSION: Diffuse soft tissue swelling without underlying bone or joint abnormality. Code Visit Inpatient E&M: 34389 Subs Hosp L3
[2018-08-02 18:55] LABS: Anion Gap 10 (5-15); BUN 30 mg/dL (7-18); BUN/Creat Ratio 31.8 RATIO (10-20); Calcium,Total 8.7 mg/dL (8.5-10.1); Chloride 104 mmol/L (98-107); Creatinine, Serum 0.94 mg/dL (0.55-1.02); EST Glomerular Filtration Rate 69 mL/min (>60); Est Glom Filt Rate - Afr Amer 84 mL/min (>60); Estimated Creatinine Clearance 59.43 ml/min; Glucose 95 mg/dL (74-106); Potassium 3.6 mmol/L (3.5-5.1); Sodium Level 136 mmol/L (136-145)
[2018-08-03] VITALS (12 sets, daily range): BP systolic 104–128; BP diastolic 44–61; PULSE 69–95; RESP 16–18; TEMP 36.4–36.9; O2SAT 95–100
[2018-08-03] MEDS: oxyCODONE 5 MG Tablet PO ×4 (02:17→23:01)
[2018-08-03] MEDS: 0.9% NaCl Peripheral Flush Adult/Peds IV (05:37)
[2018-08-03] MEDS: Levothyroxine 50 MCG Tablet PO (05:47)
[2018-08-03] MEDS: Heparin Injection (Vial) 5,000 UNIT/ML VIAL 5000 UNIT SC ×3 (05:47→23:00)
[2018-08-03 06:22] LABS: Differential Indicated MANUAL DIFF; Hematocrit 28.2 % (37-47); Mean Corp Hgb Conc 31.9 g/gl (32-36); Mean Corpuscular Hgb 26.1 pg (27.0-32.0); Mean Corpuscular Volume 81.7 fL (81-99); POSITIVE COUNT YES; POSITIVE DIFFERENTIAL NO; POSITIVE MORPHOLOGY YES; Platelet Count 441 K/mm3 (150-450); RBC Distribution Width CV 17.1 % (11.6-14.6); RBC Distribution Width SD 51.4 fl (35.1-43.9); Red Blood Count 3.45 M/mm3 (4.2-5.4); White Blood Count 9.2 K/mm3 (4.4-11.0)
[2018-08-03 06:43] LABS: Anion Gap 10 (5-15); BUN 23 mg/dL (7-18); BUN/Creat Ratio 30.5 RATIO (10-20); Chloride 104 mmol/L (98-107); Creatinine, Serum 0.76 mg/dL (0.55-1.02); EST Glomerular Filtration Rate 90 mL/min (>60); Est Glom Filt Rate - Afr Amer 108 mL/min (>60); Estimated Creatinine Clearance 73.51 ml/min; Glucose 92 mg/dL (74-106); Potassium 3.4 mmol/L (3.5-5.1); Sodium Level 141 mmol/L (136-145)
[2018-08-03 07:08] LABS: Eosinophil 2 % (0-5); Lymphocyte 21 % (19-41); Monocyte 9 % (0-10); Neutrophil-Segmented 68 % (47-70); Red Cell Morphology NORM C+C NORMAL (NORM C&C); Total Cells Counted 100 (MANUAL DIFF)
[2018-08-03 07:09] LABS: Platelet Estimate ADEQUATE (ADEQ)
[2018-08-03] MEDS: Multivitamins,Ther W-Minerals Tablet 1 TABLET PO (08:24)
[2018-08-03] MEDS: proMETHazine 25 MG Tablet PO ×2 (08:24→17:50)
[2018-08-03] MEDS: Gabapentin 100 MG Capsule 200 MG PO ×3 (08:24→17:46)
[2018-08-03] MEDS: Pantoprazole Sodium 40 MG Tablet PO (08:25)
[2018-08-03] MEDS: DULoxetine Hcl 30 MG Capsule PO (08:25)
--- NOTE | 2018-08-03 09:30 | PCM.PN.ORT ---
Patient Problems: Active and Suspected Problems Hypokalemia (Acute) Cellulitis of left elbow (Acute) Acute renal failure (Acute) Subjective: Patient's posterior elbow pain is about the same. Denies constitutional symtoms. - Physical Exam General: Alert, Cooperative, No apparent distress Extremities: Tenderness - Left olecranon bursa with swelling and erythema unchanged. No joint pain to palpation or gentle ROM. Musculoskeletal: Tenderness Neurological: Sensory exam intact to light touch and pain Psych/Mental Status: Appropriate Vital Signs Temp Pulse Resp BP Pulse Ox 97.8 F 95 16 128/44 H 96 08/03/18 08:20 08/03/18 08:20 08/03/18 08:20 08/03/18 08:20 08/03/18 08:20 Oxygen Delivery Method Room Air Weight: 137 lb 5.568 oz Body Mass Index (BMI) 25.9 Intake and Output for Last 24 Hours 08/01/18 08/02/18 08/03/18 23:59 23:59 23:59 Intake Total 5196 / 5196 2871.8 / 2871.8 86.5 / 86.5 Balance 5196 / 5196 2871.8 / 2871.8 86.5 / 86.5 Laboratory Tests Past 24 Hrs 08/02/18 08/02/18 08/03/18 05:21 18:17 05:40 WBC 9.2 RBC 3.45 L Hgb 9.0 L Hct 28.2 L MCV 81.7 MCH 26.1 L MCHC 31.9 L RDW 17.1 H RDW Differential 51.4 H Plt Count 441 MPV 10.0 Neut % (Auto) Not Reportable Absolute Neuts (auto) Not Reportable Total Counted 100 Neutrophils % (Manual) 68 Lymphocytes % (Manual) 21 Monocytes % (Manual) 9 Eosinophils % (Manual) 2 Diff Path Review May foll Platelet Estimate ADEQUATE RBC Morphology NORM C+C Sodium 136 Potassium 3.6 Chloride 104 Carbon Dioxide 22.0 Anion Gap 10 BUN 30 H Creatinine 0.94 Estim Creat Clear Calc 59.43 Est GFR (MDRD) Af Amer 84 Est GFR (MDRD) Non-Af 69 BUN/Creatinine Ratio 31.8 H Glucose 95 Calcium 8.7 Phosphorus 3.2 Magnesium 2.3 08/03/18 05:40 WBC RBC Hgb Hct MCV MCH MCHC RDW RDW Differential Plt Count MPV Neut % (Auto) Absolute Neuts (auto) Total Counted Neutrophils % (Manual) Lymphocytes % (Manual) Monocytes % (Manual) Eosinophils % (Manual) Diff Path Review Platelet Estimate RBC Morphology Sodium 141 Potassium 3.4 L Chloride 104 Carbon Dioxide 27.0 Anion Gap 10 BUN 23 H Creatinine 0.76 Estim Creat Clear Calc 73.51 Est GFR (MDRD) Af Amer 108 Est GFR (MDRD) Non-Af 90 BUN/Creatinine Ratio 30.5 H Glucose 92 Calcium 9.0 Phosphorus Magnesium Medical Necessity - Tobacco Use Smoking Status: Current every day smoker Assessment/Plan All Active Problems Hypokalemia (Acute) Cellulitis of left elbow (Acute) Acute renal failure (Acute) Foot ulcer, right (Acute) As above. Will attempt to coordinate with wound care regarding decubiti. Will likely need olecranon bursectomy, but not emergently and if the patient needs an anesthetic for ulcer care can try to coordinate so that olecranon bursectomy can be done at the same time. Case discussed with Dr. Ring.
--- NOTE | 2018-08-03 16:35 | PCM.PN.HOSP ---
Patient Problems: Active and Suspected Problems Hypokalemia (Acute) Cellulitis of left elbow (Acute) Acute renal failure (Acute) Subjective: Patient leukocytosis has resolved. Admitted with 19,000 and now 9.2 thousand. Potassium is also better. K3.4. No fever or chills. Left elbow swelling is getting better Vitals/I&O's: Vital Signs Temp Pulse Resp BP Pulse Ox 97.7 F L 70 16 104/44 L 97 08/03/18 14:20 08/03/18 15:02 08/03/18 14:20 08/03/18 14:20 08/03/18 14:20 Oxygen Delivery Method Room Air Weight: 137 lb 5.568 oz Body Mass Index (BMI) 25.9 Intake and Output for Last 24 Hours 08/01/18 08/02/18 08/03/18 23:59 23:59 23:59 Intake Total 5196 / 5196 2871.8 / 2871.8 886.5 / 886.5 Balance 5196 / 5196 2871.8 / 2871.8 886.5 / 886.5 General: Alert, Oriented x3, Cooperative HEENT: Atraumatic, PERRLA, EOMI, Normocephalic Neck: Supple, No JVD, Negative Carotid Bruits Lungs: Clear to auscultation, Normal air movement Cardiovascular: Regular rate, Normal S1, Normal S2, No murmurs Abdomen: Bowel Sounds Present, Soft, Non Tender Extremities: No edema, Capillary Refill Less than 3 Seconds Skin: Ulcer/ Wound - Multiple toes and fingers are amputated. Bilateral transmetatarsal amputation. History of recurrent MRSA infection., Rash Present Musculoskeletal: No Tenderness to Palpation of Joints or Extremities Neurological: Cranial nerves II-XII grossly intact Psych/Mental Status: Normal Affect, Appropriate Laboratory Results 08/02/18 18:17: Sodium 136, Potassium 3.6, Chloride 104, Carbon Dioxide 22.0, Anion Gap 10, BUN 30 H, Creatinine 0.94, Estim Creat Clear Calc 59.43, Est GFR (MDRD) Af Amer 84, Est GFR (MDRD) Non-Af 69, BUN/Creatinine Ratio 31.8 H, Glucose 95, Calcium 8.7 08/03/18 05:40: WBC 9.2, RBC 3.45 L, Hgb 9.0 L, Hct 28.2 L, MCV 81.7, MCH 26.1 L, MCHC 31.9 L, RDW 17.1 H, RDW Differential 51.4 H, Plt Count 441, MPV 10.0, Neut % (Auto) Not Reportable, Absolute Neuts (auto) Not Reportable, Total Counted 100, Neutrophils % (Manual) 68, Lymphocytes % (Manual) 21, Monocytes % (Manual) 9, Eosinophils % (Manual) 2, Diff Path Review March, Platelet Estimate ADEQUATE, RBC Morphology NORM C+C 08/03/18 05:40: Sodium 141, Potassium 3.4 L, Chloride 104, Carbon Dioxide 27.0, Anion Gap 10, BUN 23 H, Creatinine 0.76, Estim Creat Clear Calc 73.51, Est GFR (MDRD) Af Amer 108, Est GFR (MDRD) Non-Af 90, BUN/Creatinine Ratio 30.5 H, Glucose 92, Calcium 9.0 Current Medications Acetaminophen (Tylenol) 650 mg PO Q6H PRN PRN PRN Reason: Mild Pain (scale 0-3)/T>100.7 Duloxetine HCl (Cymbalta) 30 mg PO DAILY [facility] Last Admin: 08/03/18 08:25 Dose: 30 mg Gabapentin (Neurontin) 200 mg PO TIDCM [facility] Last Admin: 08/03/18 11:29 Dose: 200 mg Heparin Sodium (Porcine) (Heparin Na) 5,000 unit SC Q8 [facility] Last Admin: 08/03/18 14:42 Dose: 5,000 unit Vancomycin IV Pharmacy to Dose (1,000 ea/ Sodium Chloride) 500 mls @ 250 mls/hr IV X1 PRN; Protocol PRN Reason: Rx to Dose Clindamycin Phosphate 600 mg/ (Dextrose) 54 mls @ 100 mls/hr IV Q8 [facility] Last Admin: 08/03/18 14:42 Dose: 100 mls/hr Vancomycin HCl 750 mg/ Sodium (Chloride) 265 mls @ 250 mls/hr IV Q24H [facility] Last Admin: 08/03/18 08:25 Dose: 250 mls/hr Lactobacillus Acidophilus (Acidophilus) 1 tablet PO TID [facility] Last Admin: 08/03/18 14:42 Dose: 1 tablet Levothyroxine Sodium (Synthroid) 50 mcg PO DAILY@0600 [facility] Last Admin: 08/03/18 05:47 Dose: 50 mcg Magnesium Hydroxide (Milk Of Magnesia) 30 ml PO DAILY PRN PRN Reason: Constipation Multivitamins/Minerals ([facility]) [facility] Admin: 08/03/18 08:24 Dose: 1 tablet Nutritional Formula (Lactose Free) (Ensure Enlive) 120 ml PO 4X/DAY [facility] Last Admin: 08/03/18 14:42 Dose: 120 ml Ondansetron HCl (Zofran) 4 mg IV Q8H PRN PRN PRN Reason: Nausea Oxycodone HCl (Oxyir) 5 mg PO Q4H PRN PRN PRN Reason: Moderate Pain (pain scale 4-5) Last Admin: 08/03/18 08:25 Dose: 5 mg Pantoprazole Sodium (Protonix) 40 mg PO DAILY [facility] Last Admin: 08/03/18 08:25 Dose: 40 mg Potassium Chloride (K-Dur) [facility] Last Admin: 08/03/18 08:24 Dose: 40 meq Promethazine HCl (Phenergan Tablet) 25 mg PO Q6H PRN PRN PRN Reason: NAUSEA Last Admin: 08/03/18 08:24 Dose: 25 mg Rizatriptan Benzoate (Maxalt) 10 mg PO DAILY PRN PRN PRN Reason: HEADACHE Sodium Chloride () 5 - 30 ml IV UD PRN PRN Reason: SALINE FLUSH Last Admin: 08/03/18 05:37 Dose: 20 ml Medical Necessity - Tobacco Use Smoking Status: Current every day smoker Assessment/Plan All Active Problems Hypokalemia (Acute) Cellulitis of left elbow (Acute) Acute renal failure (Acute) Foot ulcer, right (Acute) The patient is a 42 year old F with a significant history of MRSA; Leesa-Danlos syndrome, 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 Patient does not have good IV access. She has MediPort on the left arm. As it is near to the cellulitis region, it is not being used. 1. SIRS (tachycardia and leukocytosis with left shift) due to cellulitis of left elbow and bursitis, most probably MRSA/Step: The patient was given IV Unasyn ER and currently on vancomycin for history of MRSA in the past and clindamycin for toxin in remission. Discussed with ID and orthopedic surgeon and consults appreciated. Left elbow and humerus x-ray shows soft tissue swelling without underlying bone or joint abnormality. Dr. Rudd agree with vancomycin and clindamycin. Does not think left arm MediPort is infected. discussed with Dr. Frost he thinks it is bursitis but not involvement of the elbow joint. Discussed with Dr. Frost and he want to coordinate all the current bursectomy with wound debridement on the left hip and back with Dr. Elias so that patient undergoes 1 anesthesia for both procedures. Blood culture negative for 48 hours. 2. Acute kidney injury: Patient creatinine on admission was 3.77 with baseline less than 1. Discontinue IV fluid normal saline. Hold nephrotoxic medications including diuretics HCTZ. Patient has right forearm midline. 3. Electrolyte imbalance: Hyponatremia and moderate to severely hypokalemia probably secondary to high output ileostomy: Potassium on admission was 1.8. Repeat potassium 3.4 This may be likely to ileostomy output. IV fluid normal saline. Unlikely due to alcoholism; since magnesium is elevated. Potassium supplements ordered; IV and p.o. monitor potassium. Multiple wounds with the largest one in the left posterolateral aspect of the hip and thigh: Wound care consult. Wound dressing. Other comorbidities include hypertension, multiple wounds, ileostomy, Leesa-Danlos syndrome with poor wound healing, depression, hypothyroidism and noncompliance: Home medication reconciliation done. multiple comorbidities complicates the present care and expect difficult and delay recovery. DVT prophylaxis: On subcutaneous heparin. Microbiology Past 72 Hours 07/31/18 23:05 Blood Culture (Wb) - Right Wrist Blood Culture - Preliminary No growth in 48 hours. 07/31/18 22:45 Blood Culture (Wb) - Anticubital Right Blood Culture - Preliminary No growth in 48 hours. Laboratory Results 08/02/18 18:17: Sodium 136, Potassium 3.6, Chloride 104, Carbon Dioxide 22.0, Anion Gap 10, BUN 30 H, Creatinine 0.94, Estim Creat Clear Calc 59.43, Est GFR (MDRD) Af Amer 84, Est GFR (MDRD) Non-Af 69, BUN/Creatinine Ratio 31.8 H, Glucose 95, Calcium 8.7 08/03/18 05:40: WBC 9.2, RBC 3.45 L, Hgb 9.0 L, Hct 28.2 L, MCV 81.7, MCH 26.1 L, MCHC 31.9 L, RDW 17.1 H, RDW Differential 51.4 H, Plt Count 441, MPV 10.0, Neut % (Auto) Not Reportable, Absolute Neuts (auto) Not Reportable, Total Counted 100, Neutrophils % (Manual) 68, Lymphocytes % (Manual) 21, Monocytes % (Manual) 9, Eosinophils % (Manual) 2, Diff Path Review March, Platelet Estimate ADEQUATE, RBC Morphology NORM C+C 08/03/18 05:40: Sodium 141, Potassium 3.4 L, Chloride 104, Carbon Dioxide 27.0, Anion Gap 10, BUN 23 H, Creatinine 0.76, Estim Creat Clear Calc 73.51, Est GFR (MDRD) Af Amer 108, Est GFR (MDRD) Non-Af 90, BUN/Creatinine Ratio 30.5 H, Glucose 92, Calcium 9.0 Clinical Impression(s) from Imaging Studies Humerus X-Ray 08/01/18 11:40 IMPRESSION: Diffuse nonspecific soft tissue swelling without underlying bone or joint abnormality. Electronically Signed: Radhika Pichardo MD at 15:17 EDT , Service support , Elbow X-Ray 08/01/18 13:11 IMPRESSION: Diffuse soft tissue swelling without underlying bone or joint abnormality. Code Visit Inpatient E&M: 59716 Subs Hosp L3
[2018-08-03 20:00] LABS: Urine Sodium 54 mmol/L (Not Establ.)
[2018-08-04] VITALS (11 sets, daily range): BP systolic 117–134; BP diastolic 48–63; PULSE 66–89; RESP 16–18; TEMP 36.8–37.4; O2SAT 94–100
[2018-08-04 00:10] LABS: Absolute Lymphocyte Count 1.93 X10^3/ul (0.83-4.51); Absolute Neutrophil Count 6.3 X10^3/uL (2.0-7.7); Lymphocyte # 1.93 X10^3/ul (4.0); Neutrophil # 6.25 X10^3/uL (2.7-7.7)
[2018-08-04] MEDS: proMETHazine 25 MG Tablet PO ×2 (02:54→21:47)
[2018-08-04] MEDS: oxyCODONE 5 MG Tablet PO ×4 (02:54→21:47)
[2018-08-04] MEDS: Heparin Injection (Vial) 5,000 UNIT/ML VIAL 5000 UNIT SC ×3 (05:23→21:48)
[2018-08-04] MEDS: Levothyroxine 50 MCG Tablet PO (05:23)
--- NOTE | 2018-08-04 07:45 | NURSING ---
Message left for Dr. Elias to return call for c/s.
[2018-08-04 08:00] LABS: Hematocrit 30.2 % (37-47); Hemoglobin 9.5 g/dl (12.0-15.0); Mean Corp Hgb Conc 31.5 g/gl (32-36); Mean Corpuscular Hgb 26.2 pg (27.0-32.0); Mean Corpuscular Volume 83.4 fL (81-99); Mean Platelet Vol. 9.4 fl (6.2-12.0); Platelet Count 463 K/mm3 (150-450); RBC Distribution Width CV 17.3 % (11.6-14.6); RBC Distribution Width SD 52.5 fl (35.1-43.9); Red Blood Count 3.62 M/mm3 (4.2-5.4); White Blood Count 8.7 K/mm3 (4.4-11.0)
[2018-08-04 08:01] LABS: Differential Indicated MANUAL DIFF; POSITIVE COUNT YES; POSITIVE DIFFERENTIAL NO; POSITIVE MORPHOLOGY YES
[2018-08-04] MEDS: Gabapentin 100 MG Capsule 200 MG PO ×3 (08:11→16:56)
[2018-08-04] MEDS: DULoxetine Hcl 30 MG Capsule PO (08:11)
[2018-08-04] MEDS: Multivitamins,Ther W-Minerals Tablet 1 TABLET PO (08:11)
[2018-08-04 08:24] LABS: Vancomycin, Trough Level 6.4 ug/mL (5.0-15.0)
[2018-08-04 08:28] LABS: Anion Gap 12 (5-15); BUN 15 mg/dL (7-18); BUN/Creat Ratio 26.5 RATIO (10-20); Calcium,Total 8.7 mg/dL (8.5-10.1); Chloride 106 mmol/L (98-107); Creatinine, Serum 0.57 mg/dL (0.55-1.02); EST Glomerular Filtration Rate 125 mL/min (>60); Est Glom Filt Rate - Afr Amer 151 mL/min (>60); Estimated Creatinine Clearance 98.01 ml/min; Glucose 98 mg/dL (74-106); Potassium 4.5 mmol/L (3.5-5.1); Sodium Level 144 mmol/L (136-145)
[2018-08-04 09:11] LABS: Neutrophil-Band 4 % (0-5); Neutrophil-Segmented 54 % (47-70); Total Cells Counted 100 (MANUAL DIFF)
[2018-08-04 09:12] LABS: Basophil 1 % (0-1); Eosinophil 4 % (0-5); Lymphocyte 18 % (19-41); Metamyelocyte 8 % (0-1); Monocyte 5 % (0-10); Myelocyte 5 (0-0); Promyelocyte 1 (0-0)
[2018-08-04 09:13] LABS: Anisocytosis RARE
--- NOTE | 2018-08-04 09:13 | PCM.RX.CS ---
Consult Pharmacy has been consulted to manage selected antiobiotic: Vancomycin Type of Consult: Follow-up Suspected Infection: Skin/Soft tissue Prior Doses of Antibiotics Received/Current Regimen: 4 Labs: Sodium 144 mmol/L (136-145) 08/04/18 07:35 Potassium 4.5 mmol/L (3.5-5.1) 08/04/18 07:35 Chloride 106 mmol/L (98-107) 08/04/18 07:35 Carbon Dioxide 26.0 mmol/L (21.0-32.0) 08/04/18 07:35 Anion Gap 12 (5-15) 08/04/18 07:35 BUN 15 mg/dL (7-18) 08/04/18 07:35 Creatinine 0.57 mg/dL (0.55-1.02) 08/04/18 07:35 Est GFR (MDRD) Af Amer 151 mL/min (>60) 08/04/18 07:35 Est GFR (MDRD) Non-Af 125 mL/min (>60) 08/04/18 07:35 BUN/Creatinine Ratio 26.5 RATIO (10-20) H 08/04/18 07:35 Glucose 98 mg/dL (74-106) 08/04/18 07:35 Vancomycin Trough 6.4 ug/mL (5.0-15.0) 08/04/18 07:35 Random Vancomycin 9.5 ug/mL (0.0-15.0) 08/02/18 05:21 Weight used for dosin.3 kg Estimated Creatinine Clearance: 98 Goal Trough: 10-15 mcg/mL - INCREASE DOSE TO 750MG Q12H AND REPEAT TROUGH PRIOR TO 4TH NEW DOSE Pharmacy Plan for Drug Dosing: Pharmacy Service will continue to monitor and adjust dosing as required.
[2018-08-04 09:16] LABS: Absolute Lymphocyte Count 1.56 X10^3/ul (0.83-4.51)
--- NOTE | 2018-08-04 09:47 | PCM.PN.HOSP ---
Patient Problems: Active and Suspected Problems Hypokalemia (Acute) Cellulitis of left elbow (Acute) Acute renal failure (Acute) Subjective: Patient is a 42-year-old lady with history of multiple comorbidities stemming from Leesa- Danlos syndrome admitted with left elbow erythema consistent with cellulitis/infected bursitis Objective: GENERAL: cooperative HEENT: Clear conjunctiva, NECK; supple, normal thyroid, CHEST: Diminished to auscultation bilaterally, HEART: Regular S1 S2, no audible murmurs ABDOMEN: soft, non-tender, ileostomy in place RECTAL: deferred EXTREMITIES: Multiple amputation of digit, right forearm induration and some erythema, swelling and erythema around the left elbow PLATER BARREL: Awake, alert and oriented to time, place and person, no lateralizing signs. SKIN: Left lateral thigh with a chronic wound Vitals/I&O's: Vital Signs Temp Pulse Resp BP Pulse Ox 98.2 F 69 18 117/50 L 94 08/04/18 05:10 08/04/18 07:15 08/04/18 05:10 08/04/18 05:10 08/04/18 06:55 Oxygen Delivery Method Room Air Weight: 62.3 kg Body Mass Index (BMI) 25.9 Intake and Output for Last 24 Hours 08/02/18 08/03/18 08/04/18 23:59 23:59 23:59 Intake Total 2871.8 / 2871.8 1651.5 / 1651.5 83.4 / 83.4 Output Total 800 / 800 Balance 2871.8 / 2871.8 851.5 / 851.5 83.4 / 83.4 Laboratory Results 08/03/18 05:40: Absolute Neuts (auto) 6.3, Absolute Lymphs (auto) 1.93 08/03/18 16:46: Urine Creatinine 55.10 08/03/18 16:46: Ur Random Sodium 54 08/04/18 07:35: WBC 8.7, RBC 3.62 L, Hgb 9.5 L, Hct 30.2 L, MCV 83.4, MCH 26.2 L, MCHC 31.5 L, RDW 17.3 H, RDW Differential 52.5 H, Plt Count 463 H, MPV 9.4, Neut % (Auto) Not Reportable, Absolute Neuts (auto) 5.0, Absolute Lymphs (auto) 1.56, Total Counted 100, Neutrophils % (Manual) 54, Band Neutrophils % 4, Lymphocytes % (Manual) 18 L, Monocytes % (Manual) 5, Eosinophils % (Manual) 4, Basophils % (Manual) 1, Metamyelocytes % 8 H, Myelocytes % 5 H, Promyelocytes % 1 H, Diff Path Review May foll, Anisocytosis RARE 08/04/18 07:35: Vancomycin Trough 6.4 08/04/18 07:35: Sodium 144, Potassium 4.5, Chloride 106, Carbon Dioxide 26.0, Anion Gap 12, BUN 15, Creatinine 0.57, Estim Creat Clear Calc 98.01, Est GFR (MDRD) Af Amer 151, Est GFR (MDRD) Non-Af 125, BUN/Creatinine Ratio 26.5 H, Glucose 98, Calcium 8.7 Current Medications Acetaminophen (Tylenol) 650 mg PO Q6H PRN PRN PRN Reason: Mild Pain (scale 0-3)/T>100.7 Duloxetine HCl (Cymbalta) 30 mg PO DAILY [facility] Last Admin: 08/04/18 08:11 Dose: 30 mg Gabapentin (Neurontin) 200 mg PO TIDCM [facility] Last Admin: 08/04/18 08:11 Dose: 200 mg Heparin Sodium (Porcine) (Heparin Na) 5,000 unit SC Q8 [facility] Last Admin: 08/04/18 05:23 Dose: 5,000 unit Vancomycin IV Pharmacy to Dose (1,000 ea/ Sodium Chloride) 500 mls @ 250 mls/hr IV X1 PRN; Protocol PRN Reason: Rx to Dose Clindamycin Phosphate 600 mg/ (Dextrose) 54 mls @ 100 mls/hr IV Q8 [facility] Last Admin: 08/04/18 05:22 Dose: 100 mls/hr Vancomycin HCl 750 mg/ Sodium (Chloride) 265 mls @ 250 mls/hr IV Q12H [facility] Lactobacillus Acidophilus (Acidophilus) 1 tablet PO TID [facility] Last Admin: 08/04/18 05:23 Dose: 1 tablet Levothyroxine Sodium (Synthroid) 50 mcg PO DAILY@0600 [facility] Last Admin: 08/04/18 05:23 Dose: 50 mcg Magnesium Hydroxide (Milk Of Magnesia) 30 ml PO DAILY PRN PRN Reason: Constipation Multivitamins/Minerals (Multivitamin With Minerals) 1 tablet PO DAILYCM [facility] Last Admin: 08/04/18 08:11 Dose: 1 tablet Nutritional Formula (Lactose Free) (Ensure Enlive) 120 ml PO 4X/DAY [facility] Last Admin: 08/04/18 08:11 Dose: Not Given Ondansetron HCl (Zofran) 4 mg IV Q8H PRN PRN PRN Reason: Nausea Oxycodone HCl (Oxyir) 5 mg PO Q4H PRN PRN PRN Reason: Moderate Pain (pain scale 4-5) Last Admin: 08/04/18 02:54 Dose: 5 mg Potassium Chloride (K-Dur) 40 meq PO TID [facility] Last Admin: 08/04/18 05:23 Dose: 40 meq Promethazine HCl (Phenergan Tablet) 25 mg PO Q6H PRN PRN PRN Reason: NAUSEA Last Admin: 08/04/18 02:54 Dose: 25 mg Rizatriptan Benzoate (Maxalt) 10 mg PO DAILY PRN PRN PRN Reason: HEADACHE Sodium Chloride () 5 - 30 ml IV UD PRN PRN Reason: SALINE FLUSH Last Admin: 08/03/18 05:37 Dose: 20 ml Medical Necessity - Tobacco Use Smoking Status: Current every day smoker Assessment/Plan All Active Problems Hypokalemia (Acute) Cellulitis of left elbow (Acute) Acute renal failure (Acute) Foot ulcer, right (Acute) Patient is a 42-year-old lady with history of multiple comorbidities stemming from Leesa- Danlos syndrome admitted with left elbow erythema consistent with cellulitis/infected bursitis 1. Cellulitis of the left elbow with bursitis cultures have remained negative to date patient managed with Clindamycin and vancomycin with infectious disease consultation placed to Dr. Rudd. Patient was also seen by Dr. Frost with surgery and plan is for patient undergo bursectomy and wound debridement on the left hip if deemed necessary by Dr. Elias so that patient undergoes 1 anesthesia for both procedures. 2. Acute kidney injury secondary to ATN from sepsis kidney function on admission was 3.77 has since resolved. Patient was on diuretics HCTZ which has since been discontinued 3. Hypokalemia secondary to HCTZ protocol 4. Hyponatremia again secondary to HCTZ resolve 5. 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 Hypertension-blood pressure stable 7. Hypothyroidism-patient is on levothyroxine home dose continued 8. Depression- SSRI 9. history of ileostomy following colonic resection after perforation 10. Chronic left thigh wound patient has a wound VAC., Follows up At the wound care center sees Dr. Elias 11. DVT prophylaxis: SC heparin Clinical Impression(s) from Imaging Studies Humerus X-Ray 08/01/18 11:40 IMPRESSION: Diffuse nonspecific soft tissue swelling without underlying bone or joint abnormality. Electronically Signed: Radhika Pichardo MD at 15:17 EDT , Service support , Elbow X-Ray 08/01/18 13:11 IMPRESSION: Diffuse soft tissue swelling without underlying bone or joint abnormality. Electronically Signed: Radhika Pichardo MD at 15:18 EDT , Service support , Active Medications Acetaminophen (Tylenol) 650 mg PO Q6H PRN PRN PRN Reason: Mild Pain (scale 0-3)/T>100.7 Duloxetine HCl (Cymbalta) 30 mg PO DAILY [facility] Last Admin: 08/04/18 08:11 Dose: 30 mg Gabapentin (Neurontin) 200 mg PO TIDCM [facility] Last Admin: 08/04/18 08:11 Dose: 200 mg Heparin Sodium (Porcine) (Heparin Na) 5,000 unit SC Q8 [facility] Last Admin: 08/04/18 05:23 Dose: 5,000 unit Vancomycin IV Pharmacy to Dose (1,000 ea/ Sodium Chloride) 500 mls @ 250 mls/hr IV X1 PRN; Protocol PRN Reason: Rx to Dose Clindamycin Phosphate 600 mg/ (Dextrose) 54 mls @ 100 mls/hr IV Q8 [facility] Last Admin: 08/04/18 05:22 Dose: 100 mls/hr Vancomycin HCl 750 mg/ Sodium (Chloride) 265 mls @ 250 mls/hr IV Q12H [facility] Lactobacillus Acidophilus (Acidophilus) 1 tablet PO TID [facility] Last Admin: 08/04/18 05:23 Dose: 1 tablet Levothyroxine Sodium (Synthroid) 50 mcg PO DAILY@0600 [facility] Last Admin: 08/04/18 05:23 Dose: 50 mcg Magnesium Hydroxide (Milk Of Magnesia) 30 ml PO DAILY PRN PRN Reason: Constipation Multivitamins/Minerals ([facility]) [facility] Last Admin: 08/04/18 08:11 Dose: 1 tablet Nutritional Formula (Lactose Free) (Ensure Enlive) 120 ml PO 4X/DAY [facility] Last Admin: 08/04/18 08:11 Dose: Not Given Ondansetron HCl (Zofran) 4 mg IV Q8H PRN PRN PRN Reason: Nausea Oxycodone HCl (Oxyir) 5 mg PO Q4H PRN PRN PRN Reason: Moderate Pain (pain scale 4-5) Last Admin: 08/04/18 02:54 Dose: 5 mg Potassium Chloride (K-Dur) 40 meq PO TID [facility] Last Admin: 08/04/18 05:23 Dose: 40 meq Promethazine HCl (Phenergan Tablet) 25 mg PO Q6H PRN PRN PRN Reason: NAUSEA Last Admin: 08/04/18 02:54 Dose: 25 mg Rizatriptan Benzoate (Maxalt) 10 mg PO DAILY PRN PRN PRN Reason: HEADACHE Sodium Chloride () 5 - 30 ml IV UD PRN PRN Reason: SALINE FLUSH Last Admin: 08/03/18 05:37 Dose: 20 ml Code Visit Inpatient E&M: [id number] [facility] Hosp L3
[2018-08-04 13:45] LABS: M R Staph aureus DNA By PCR POSITIVE (Negative); Probe Check PASS; Staph aureus DNA By PCR POSITIVE (Negative)
[2018-08-04 13:54] LABS: Pathologist Review Reviewed
--- NOTE | 2018-08-04 14:04 | PCM.PN.ID ---
Patient Problems: Active and Suspected Problems Hypokalemia (Acute) Cellulitis of left elbow (Acute) Acute renal failure (Acute) Subjective: Alert tolerating antimicrobial therapy well. No fevers. Cardiopulmonary status stable Objective: Patient is alert ambulating in the room. Lungs are clear heart exam S1-S2 abdomen soft nontender left elbow there is some diffuse erythema and swelling of the left forearm and some drainage on the left olecranon bursa area - Physical Exam Vital Signs Temp Pulse Resp BP Pulse Ox 98.5 F 82 16 134/48 H 100 08/04/18 11:10 08/04/18 11:10 08/04/18 11:10 08/04/18 11:10 08/04/18 11:10 Oxygen Delivery Method Room Air Weight: 62.3 kg Body Mass Index (BMI) 25.9 Intake and Output for Last 24 Hours 08/02/18 08/03/18 08/04/18 23:59 23:59 23:59 Intake Total 2871.8 / 2871.8 1651.5 / 1651.5 83.4 / 83.4 Output Total 800 / 800 Balance 2871.8 / 2871.8 851.5 / 851.5 83.4 / 83.4 Laboratory Tests Past 24 Hrs 08/03/18 08/03/18 08/03/18 05:40 16:46 16:46 WBC RBC Hgb Hct MCV MCH MCHC RDW RDW Differential Plt Count MPV Neut % (Auto) Absolute Neuts (auto) 6.3 Absolute Lymphs (auto) 1.93 Total Counted Neutrophils % (Manual) Band Neutrophils % Lymphocytes % (Manual) Monocytes % (Manual) Eosinophils % (Manual) Basophils % (Manual) Metamyelocytes % Myelocytes % Promyelocytes % Diff Path Review Reviewed Anisocytosis Sodium Potassium Chloride Carbon Dioxide Anion Gap BUN Creatinine Estim Creat Clear Calc Est GFR (MDRD) Af Amer Est GFR (MDRD) Non-Af BUN/Creatinine Ratio Glucose Calcium Ur Random Sodium 54 Urine Creatinine 55.10 Vancomycin Trough S.aureus Protein A PCR MRSA (PCR) 08/04/18 08/04/18 08/04/18 07:35 07:35 07:35 WBC 8.7 RBC 3.62 L Hgb 9.5 L Hct 30.2 L MCV 83.4 MCH 26.2 L MCHC 31.5 L RDW 17.3 H RDW Differential 52.5 H Plt Count 463 H MPV 9.4 Neut % (Auto) Not Reportable Absolute Neuts (auto) 5.0 Absolute Lymphs (auto) 1.56 Total Counted 100 Neutrophils % (Manual) 54 Band Neutrophils % 4 Lymphocytes % (Manual) 18 L Monocytes % (Manual) 5 Eosinophils % (Manual) 4 Basophils % (Manual) 1 Metamyelocytes % 8 H Myelocytes % 5 H Promyelocytes % 1 H Diff Path Review May foll Anisocytosis RARE Sodium 144 Potassium 4.5 Chloride 106 Carbon Dioxide 26.0 Anion Gap 12 BUN 15 Creatinine 0.57 Estim Creat Clear Calc 98.01 Est GFR (MDRD) Af Amer 151 Est GFR (MDRD) Non-Af 125 BUN/Creatinine Ratio 26.5 H Glucose 98 Calcium 8.7 Ur Random Sodium Urine Creatinine Vancomycin Trough 6.4 S.aureus Protein A PCR MRSA (PCR) 08/04/18 11:00 WBC RBC Hgb Hct MCV MCH MCHC RDW RDW Differential Plt Count MPV Neut % (Auto) Absolute Neuts (auto) Absolute Lymphs (auto) Total Counted Neutrophils % (Manual) Band Neutrophils % Lymphocytes % (Manual) Monocytes % (Manual) Eosinophils % (Manual) Basophils % (Manual) Metamyelocytes % Myelocytes % Promyelocytes % Diff Path Review Anisocytosis Sodium Potassium Chloride Carbon Dioxide Anion Gap BUN Creatinine Estim Creat Clear Calc Est GFR (MDRD) Af Amer Est GFR (MDRD) Non-Af BUN/Creatinine Ratio Glucose Calcium Ur Random Sodium Urine Creatinine Vancomycin Trough S.aureus Protein A PCR POSITIVE H MRSA (PCR) POSITIVE H Medical Necessity - Tobacco Use Smoking Status: Current every day smoker Route of nutrition/ use of supplements: [] Nutritional Intake: [] IV Site: [] Odom Catheter: [] - Assessment/Plan Antibiotics: [] Assessment/Plan: [] Active and Suspected Problems Hypokalemia (Acute) Cellulitis of left elbow (Acute) Acute renal failure (Acute) Left arm cellulitis with concern of septic bursitis the left elbow/olecranon bursa. Continue empiric antimicrobial therapy in the form of vancomycin and clindamycin. Culture the drainage was sent earlier this morning.
--- NOTE | 2018-08-04 15:02 | PCM.CONS.GEN ---
Reason for Consult Date of Consultation: 08/04/18 Reason for Consultation: Nonhealing ulcers left hip and right medial thigh. REFERRING PHYSICIAN: Dr. Herrera. DISTRICT COURT JUSTICE: Dr. Elias. History of Present Illness: The patient is a 42 year old F who was recently admitted because of a left elbow infection. She is currently on Vancomycin and Cleocin. Patient has a history of nonhealing ulcers to her left hip that was the result of a traumatic hematoma. I had taken her to surgery in 08/09 for debridement and skin grafting of the left hip ulcer. There was minimal followup. Patient states the graft had healed initially and then eventually developed ulcerations. She has a history of MRSA. At home she was just placing dry dressings on the ulcerations. In the hospital, Silver dressings were started. Orthopedic Surgery has been treating her left elbow and was planning on debriding the area with a bursectomy. I was asked to evaluate these nonhealing ulcers on her left hip and right medial thigh for surgical options for treatment and to try and coordinate the debridement on the same day as the orthopedic procedure on her left elbow so as to subject the patient to just one anesthetic if possible. 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) Hypothyroidism (Chronic) Depression (Chronic) Anemia (Chronic) Allergies morphine Adverse Reaction (Verified 07/31/18 21:59) Nausea Current Medications Acetaminophen (Tylenol) 650 mg PO Q6H PRN PRN PRN Reason: Mild Pain (scale 0-3)/T>100.7 Duloxetine HCl (Cymbalta) 30 mg PO DAILY [facility] Last Admin: 08/04/18 08:11 Dose: 30 mg Gabapentin (Neurontin) 200 mg PO TIDCM [facility] Last Admin: 08/04/18 11:27 Dose: 200 mg Heparin Sodium (Porcine) (Heparin Na) 5,000 unit SC Q8 [facility] Last Admin: 08/04/18 14:35 Dose: 5,000 unit Vancomycin IV Pharmacy to Dose (1,000 ea/ Sodium Chloride) 500 mls @ 250 mls/hr IV X1 PRN; Protocol PRN Reason: Rx to Dose Clindamycin Phosphate 600 mg/ (Dextrose) 54 mls @ 100 mls/hr IV Q8 [facility] Last Admin: 08/04/18 14:36 Dose: 100 mls/hr Vancomycin HCl 750 mg/ Sodium (Chloride) 265 mls @ 250 mls/hr IV Q12H [facility] Lactobacillus Acidophilus (Acidophilus) 1 tablet PO TID [facility] Last Admin: 08/04/18 14:35 Dose: 1 tablet Levothyroxine Sodium (Synthroid) 50 mcg PO DAILY@0600 [facility] Last Admin: 08/04/18 05:23 Dose: 50 mcg Magnesium Hydroxide (Milk Of Magnesia) 30 ml PO DAILY PRN PRN Reason: Constipation Multivitamins/Minerals (Multivitamin With Minerals) 1 tablet PO DAILYCM [facility] Last Admin: 08/04/18 08:11 Dose: 1 tablet Nutritional Formula (Lactose Free) (Ensure Enlive) 120 ml PO 4X/DAY [facility] Last Admin: 08/04/18 14:32 Dose: Not Given Ondansetron HCl (Zofran) 4 mg IV Q8H PRN PRN PRN Reason: Nausea Oxycodone HCl (Oxyir) 5 mg PO Q4H PRN PRN PRN Reason: Moderate Pain (pain scale 4-5) Last Admin: 08/04/18 11:22 Dose: 5 mg Potassium Chloride (K-Dur) 40 meq PO TID [facility] Last Admin: 08/04/18 14:35 Dose: 40 meq Promethazine HCl (Phenergan Tablet) 25 mg PO Q6H PRN PRN PRN Reason: NAUSEA Last Admin: 08/04/18 02:54 Dose: 25 mg Rizatriptan Benzoate (Maxalt) 10 mg PO DAILY PRN PRN PRN Reason: HEADACHE Sodium Chloride () 5 - 30 ml IV UD PRN PRN Reason: SALINE FLUSH Last Admin: 08/03/18 05:37 Dose: 20 ml Home Medications: Ambulatory Orders Medication Instructions Recorded Esomeprazole Mag Trihydrate 40 mg PO DAILY 12/25/13 [Nexium] Levothyroxine [Synthroid] 50 mcg PO DAILY@0600 #30 tablet 02/04/14 Gabapentin [Neurontin] 1,200 mg PO TID 03/13/14 proMETHazine tablet [Phenergan 25 mg PO Q6H PRN PRN #12 tablet 11/30/14 tablet] Hydrochlorothiazide [Hctz] 25 mg PO DAILY 06/12/15 Duloxetine Hcl [Cymbalta] 30 mg PO DAILY 07/21/15 Sumatriptan Succinate [Imitrex] 50 mg PO PRN PRN 07/21/15 Ibuprofen [Motrin Ib] 400 - 600 mg PO 4X/DAY PRN #1 06/08/16 tablet Surgical History: - - Laser surgery for genital warts. hemorrhoidectomy. fistulectomy. EGD. IUD placement. total colectomy with ileostomy. mid-level amputations of fingers and toes following pressure-support treatments for sepsis. tracheostomy. incision and drainage and excisional debridement including muscle post-traumatic hematoma/seroma left hip/lateral thigh extending onto anterior thigh and posterior thigh and gluteal area (750 cm2) in 01/08. excisional debridement nonhealing ulcer left hip with STSG reconstruction from left gluteal area (60 cm2) and placement of NPWT on 07/28/15. Smoking Status: Current every day smoker Alcohol: Occasional - *Family History Paternal History Items: Heart Disease Maternal History Items: No pertinent history, - - Leesa-Danlos syndrome Review of Systems Comment: Constitutional: Denies: Chills, Fever, Weight Change. HEENT: Denies: Head Aches, Sinus Congestion, Sinus Drainage. Cardiovascular: Denies: Chest Pain, Palpitations. Respiratory: Reports: Cough. Gastrointestinal: Denies: Abdominal Pain, Nausea, Vomiting. Genitourinary: Denies: Dysuria. Musculoskeletal: Reports: - - Left elbow pain, -. Skin: Reports: Skin Changes - Redness of left elbow; wounds on left posterior hip and right medial thigh; ileostomy present. Neurological: Denies: Numbness, Tingling, Focal weakness. Psychiatric: Denies: Anxiety, Depression, Homicidal Ideations, Suicidal Ideations. Hematologic/ Lymphatic: Denies: Easy Bruising, Easy Bleeding - Physical Exam General: Alert, Oriented x3, Cooperative HEENT: PERRLA, EOMI. Throat is clear. Neck: Supple, nontender, No cervical adenopathy. Lungs: Clear to auscultation. Cardiovascular: Regular rate. Abdomen: Soft, nondistended. Ostomy bag with greenish looking loose stools. Extremities: Tenderness - left elbow, - - Loss of all fingers and toes on extremities at level of proximal phalanx. Skin: On the left posterior hip is a healed skin graft with nonhealing ulcers cluster. Measures 8 x 5 cm. Some pale granulation tissue is present. No acute evidence of infection at the present time. No odor. Mild tenderness to palpation. On the right medial thigh is a nonhealing ulcer that measures 3 x 3 cm. Some granulation tissue present. Mild tenderness to palpation. Lymphatic: No Cervical, Supraclavicular, or Inguinal Adenopathy Neurological: Cranial nerves II-XII grossly intact Psych/Mental Status: Normal Affect Vital Signs Temp Pulse Resp BP Pulse Ox 98.5 F 82 16 134/48 H 100 08/04/18 11:10 08/04/18 11:10 08/04/18 11:10 08/04/18 11:10 08/04/18 11:10 Oxygen Delivery Method Room Air Weight: 137 lb 5.568 oz Body Mass Index (BMI) 25.9 Intake and Output for Last 24 Hours 08/02/18 08/03/18 08/04/18 23:59 23:59 23:59 Intake Total 2871.8 / 2871.8 1651.5 / 1651.5 988.4 / 988.4 Output Total 800 / 800 600 / 600 Balance 2871.8 / 2871.8 851.5 / 851.5 388.4 / 388.4 Microbiology Past 72 Hours 08/04/18 11:00 Gram Stain - Final Wound Drainage - Elbow Laboratory Tests Past 24 Hrs 08/03/18 08/03/18 08/03/18 05:40 16:46 16:46 WBC RBC Hgb Hct MCV MCH MCHC RDW RDW Differential Plt Count MPV Neut % (Auto) Absolute Neuts (auto) 6.3 Absolute Lymphs (auto) 1.93 Total Counted Neutrophils % (Manual) Band Neutrophils % Lymphocytes % (Manual) Monocytes % (Manual) Eosinophils % (Manual) Basophils % (Manual) Metamyelocytes % Myelocytes % Promyelocytes % Diff Path Review Reviewed Anisocytosis Sodium Potassium Chloride Carbon Dioxide Anion Gap BUN Creatinine Estim Creat Clear Calc Est GFR (MDRD) Af Amer Est GFR (MDRD) Non-Af BUN/Creatinine Ratio Glucose Calcium Ur Random Sodium 54 Urine Creatinine 55.10 Vancomycin Trough S.aureus Protein A PCR MRSA (PCR) 08/04/18 08/04/18 08/04/18 07:35 07:35 07:35 WBC 8.7 RBC 3.62 L Hgb 9.5 L Hct 30.2 L MCV 83.4 MCH 26.2 L MCHC 31.5 L RDW 17.3 H RDW Differential 52.5 H Plt Count 463 H MPV 9.4 Neut % (Auto) Not Reportable Absolute Neuts (auto) 5.0 Absolute Lymphs (auto) 1.56 Total Counted 100 Neutrophils % (Manual) 54 Band Neutrophils % 4 Lymphocytes % (Manual) 18 L Monocytes % (Manual) 5 Eosinophils % (Manual) 4 Basophils % (Manual) 1 Metamyelocytes % 8 H Myelocytes % 5 H Promyelocytes % 1 H Diff Path Review May foll Anisocytosis RARE Sodium 144 Potassium 4.5 Chloride 106 Carbon Dioxide 26.0 Anion Gap 12 BUN 15 Creatinine 0.57 Estim Creat Clear Calc 98.01 Est GFR (MDRD) Af Amer 151 Est GFR (MDRD) Non-Af 125 BUN/Creatinine Ratio 26.5 H Glucose 98 Calcium 8.7 Ur Random Sodium Urine Creatinine Vancomycin Trough 6.4 S.aureus Protein A PCR MRSA (PCR) 08/04/18 11:00 WBC RBC Hgb Hct MCV MCH MCHC RDW RDW Differential Plt Count MPV Neut % (Auto) Absolute Neuts (auto) Absolute Lymphs (auto) Total Counted Neutrophils % (Manual) Band Neutrophils % Lymphocytes % (Manual) Monocytes % (Manual) Eosinophils % (Manual) Basophils % (Manual) Metamyelocytes % Myelocytes % Promyelocytes % Diff Path Review Anisocytosis Sodium Potassium Chloride Carbon Dioxide Anion Gap BUN Creatinine Estim Creat Clear Calc Est GFR (MDRD) Af Amer Est GFR (MDRD) Non-Af BUN/Creatinine Ratio Glucose Calcium Ur Random Sodium Urine Creatinine Vancomycin Trough S.aureus Protein A PCR POSITIVE H MRSA (PCR) POSITIVE H Diagnostic Data Humerus X-Ray 08/01/18 11:40 IMPRESSION: Diffuse nonspecific soft tissue swelling without underlying bone or joint abnormality. Electronically Signed: Radhika Pichardo MD at 15:17 EDT , Service support , Elbow X-Ray 08/01/18 13:11 IMPRESSION: Diffuse soft tissue swelling without underlying bone or joint abnormality. Electronically Signed: Radhika Pichardo MD at 15:18 EDT , Service support , Assessment/Plan All Active Problems Hypokalemia (Acute) Cellulitis of left elbow (Acute) Acute renal failure (Acute) Foot ulcer, right (Acute) 1. Recurrent nonhealing ulcers cluster left posterior hip. 2. Nonhealing ulcer right medial thigh. 3. MRSA. 4. Smoker. 5. Left elbow infection. Continue Silver dressing changes to the ulcerations (left posterior hip and right medial thigh). Continue IV antibiotics with Vancomycin and Cleocin. Will coordinate with Orthopedic Surgery regarding debridement of the left elbow with bursectomy and debridement of these nonhealing ulcers on her left posterior hip and right medial thigh so the patient is subjected to one anesthetic if possible. Will send tissue to Pathology for analysis to rule out carcinoma and to Microbiology for culture. A positive culture may necessitate antibiotic modification. Postop wound care would be with either the VAC or with daily dressing changes with a Silver dressing. After discharge can followup at the [facility]. If there is a plateau in the healing process, can proceed with delayed closure with skin grafting. Anticipate increased metabolic demands from the ulcers and the surgery. Will check a Prealbumin and encourage nutritional supplementation with protein to help the healing process. Patient was informed of the risks and complications of the procedure including alternatives to surgery. These were discussed with the patient personally. Patient voices understanding and wishes to proceed. Encouraged patient to stop smoking as it may have deleterious effects on wound healing. Code Visit Inpatient E&M: 92838 Init Hosp L2 - ICD-10 - L97.122, L97.112, A49.02, F17.200
[2018-08-05] VITALS (11 sets, daily range): BP systolic 96–128; BP diastolic 52–75; PULSE 68–95; RESP 16; TEMP 36.4–37.2; O2SAT 95–98
[2018-08-05] MEDS: oxyCODONE 5 MG Tablet PO ×2 (03:40→08:28)
[2018-08-05] MEDS: 0.9% NaCl Peripheral Flush Adult/Peds IV (05:30)
[2018-08-05] MEDS: Heparin Injection (Vial) 5,000 UNIT/ML VIAL 5000 UNIT SC ×3 (05:51→22:54)
[2018-08-05] MEDS: Levothyroxine 50 MCG Tablet PO (05:52)
[2018-08-05 05:58] LABS: Anion Gap 7 (5-15); BUN 14 mg/dL (7-18); BUN/Creat Ratio 25.4 RATIO (10-20); Calcium,Total 9.1 mg/dL (8.5-10.1); Chloride 110 mmol/L (98-107); Creatinine, Serum 0.55 mg/dL (0.55-1.02); EST Glomerular Filtration Rate 128 mL/min (>60); Est Glom Filt Rate - Afr Amer 155 mL/min (>60); Estimated Creatinine Clearance 101.58 ml/min; Glucose 100 mg/dL (74-106); Potassium 5.8 mmol/L (3.5-5.1); Sodium Level 144 mmol/L (136-145)
[2018-08-05] MEDS: DULoxetine Hcl 30 MG Capsule PO (08:41)
[2018-08-05] MEDS: Multivitamins,Ther W-Minerals Tablet 1 TABLET PO (08:41)
[2018-08-05] MEDS: Gabapentin 100 MG Capsule 200 MG PO ×3 (08:41→22:53)
--- NOTE | 2018-08-05 09:25 | PCM.PN.HOSP ---
Patient Problems: Active and Suspected Problems Hypokalemia (Acute) Cellulitis of left elbow (Acute) Acute renal failure (Acute) Subjective: Patient seen complains of significant pain in the elbow also complains of pain in the elbow. Also did complain of insomnia. Patient's pain medication regimen adjusted. Added Ambien as needed for sleep Objective: GENERAL: cooperative HEENT: Clear conjunctiva, NECK; supple, normal thyroid, CHEST: Diminished to auscultation bilaterally, HEART: Regular S1 S2, no audible murmurs ABDOMEN: soft, non-tender, ileostomy in place RECTAL: deferred EXTREMITIES: Multiple amputation of digit, right forearm induration and some erythema, swelling and erythema around the left elbow GARMENT TAG STRINGER: Awake, alert and oriented to time, place and person, no lateralizing signs. SKIN: Left lateral thigh with a chronic wound Vitals/I&O's: Vital Signs Temp Pulse Resp BP Pulse Ox 97.6 F L 79 16 128/69 H 95 08/05/18 08:27 08/05/18 08:27 08/05/18 08:27 08/05/18 08:27 08/05/18 08:27 Oxygen Delivery Method Room Air Weight: 62.3 kg Body Mass Index (BMI) 25.9 Intake and Output for Last 24 Hours 08/03/18 08/04/18 08/05/18 23:59 23:59 23:59 Intake Total 1651.5 / 1651.5 1448.4 / 1448.4 240 / 240 Output Total 800 / 800 750 / 750 Balance 851.5 / 851.5 698.4 / 698.4 240 / 240 Microbiology Past 72 Hours 08/04/18 11:00 Wound Drainage - Elbow Gram Stain - Final Laboratory Results 08/03/18 05:40: Diff Path Review Reviewed 08/04/18 11:00: S.aureus Protein A PCR POSITIVE H, MRSA (PCR) POSITIVE H 08/05/18 05:25: Sodium 144, Potassium 5.8 H, Chloride 110 H, Carbon Dioxide 27.0, Anion Gap 7, BUN 14, Creatinine 0.55, Estim Creat Clear Calc 101.58, Est GFR (MDRD) Af Amer 155, Est GFR (MDRD) Non-Af 128, BUN/Creatinine Ratio 25.4 H, Glucose 100, Calcium 9.1 Current Medications Acetaminophen (Tylenol) 650 mg PO Q6H PRN PRN PRN Reason: Mild Pain (scale 0-3)/T>100.7 Duloxetine HCl (Cymbalta) 30 mg PO DAILY [facility] Last Admin: 08/05/18 08:41 Dose: 30 mg Gabapentin (Neurontin) 200 mg PO TIDCM [facility] Last Admin: 08/05/18 08:41 Dose: 200 mg Heparin Sodium (Porcine) (Heparin Na) 5,000 unit SC Q8 [facility] Last Admin: 08/05/18 05:51 Dose: 5,000 unit Vancomycin IV Pharmacy to Dose (1,000 ea/ Sodium Chloride) 500 mls @ 250 mls/hr IV X1 PRN; Protocol PRN Reason: Rx to Dose Clindamycin Phosphate 600 mg/ (Dextrose) 54 mls @ 100 mls/hr IV Q8 [facility] Last Admin: 08/05/18 05:50 Dose: 100 mls/hr Vancomycin HCl 750 mg/ Sodium (Chloride) 265 mls @ 250 mls/hr IV Q12H [facility] Last Admin: 08/05/18 08:28 Dose: 250 mls/hr Lactobacillus Acidophilus (Acidophilus) 1 tablet PO TID [facility] Last Admin: 08/05/18 05:52 Dose: 1 tablet Levothyroxine Sodium (Synthroid) 50 mcg PO DAILY@0600 [facility] Last Admin: 08/05/18 05:52 Dose: 50 mcg Magnesium Hydroxide (Milk Of Magnesia) 30 ml PO DAILY PRN PRN Reason: Constipation Multivitamins/Minerals (Multivitamin With Minerals) 1 tablet PO DAILYCM [facility] Last Admin: 08/05/18 08:41 Dose: 1 tablet Nutritional Formula (Lactose Free) (Ensure Enlive) 120 ml PO 4X/DAY [facility] Last Admin: 08/05/18 08:41 Dose: Not Given Ondansetron HCl (Zofran) 4 mg IV Q8H PRN PRN PRN Reason: Nausea Oxycodone HCl (Oxyir) 5 mg PO Q4H PRN PRN PRN Reason: Moderate Pain (pain scale 4-5) Last Admin: 08/05/18 08:28 Dose: 5 mg Promethazine HCl (Phenergan Tablet) 25 mg PO Q6H PRN PRN PRN Reason: NAUSEA Last Admin: 08/04/18 21:47 Dose: 25 mg Rizatriptan Benzoate (Maxalt) 10 mg PO DAILY PRN PRN PRN Reason: HEADACHE Sodium Chloride () 5 - 30 ml IV UD PRN PRN Reason: SALINE FLUSH Last Admin: 08/05/18 05:30 Dose: 20 ml Medical Necessity - Tobacco Use Smoking Status: Current every day smoker Assessment/Plan All Active Problems Hypokalemia (Acute) Cellulitis of left elbow (Acute) Acute renal failure (Acute) Foot ulcer, right (Acute) Patient is a 42-year-old lady with history of multiple comorbidities stemming from Leesa- Danlos syndrome admitted with left elbow erythema consistent with cellulitis/infected bursitis 1. Cellulitis of the left elbow with bursitis cultures have remained negative to date patient managed with Clindamycin and vancomycin with infectious disease consultation placed to Dr. Rudd. Patient was also seen by Dr. Frost with surgery and plan is for patient undergo bursectomy and wound debridement on the left hip if deemed necessary by Dr. Elias so that patient undergoes 1 anesthesia for both procedures. Case was discussed with Dr. Frost on 08/05/2018 he plans to take patient to surgery on 08/07/2018 2. Acute kidney injury secondary to ATN from sepsis kidney function on admission was 3.77 has since resolved. Patient was on diuretics HCTZ which has since been discontinued 3. Hypokalemia secondary to HCTZ protocol 4. Hyponatremia again secondary to HCTZ resolve 5. 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 Hypertension-blood pressure stable 7. Hypothyroidism-patient is on levothyroxine home dose continued 8. Depression- SSRI 9. history of ileostomy following colonic resection after perforation 10. Chronic left thigh wound patient has a wound VAC., Follows up At the wound care center sees Dr. Elias 11. DVT prophylaxis: SC heparin Clinical Impression(s) from Imaging Studies Humerus X-Ray 08/01/18 11:40 IMPRESSION: Diffuse nonspecific soft tissue swelling without underlying bone or joint abnormality. Electronically Signed: Radhika Pichardo MD at 15:17 EDT , Service support , Elbow X-Ray 08/01/18 13:11 IMPRESSION: Diffuse soft tissue swelling without underlying bone or joint abnormality. Electronically Signed: Radhika Pichardo MD at 15:18 EDT , Service support , Active Medications Acetaminophen (Tylenol) 650 mg PO Q6H PRN PRN PRN Reason: Mild Pain (scale 0-3)/T>100.7 Duloxetine HCl (Cymbalta) 30 mg PO DAILY [facility] Last Admin: 08/04/18 08:11 Dose: 30 mg Gabapentin (Neurontin) 200 mg PO TIDCM [facility] Last Admin: 08/04/18 08:11 Dose: 200 mg Heparin Sodium (Porcine) (Heparin Na) 5,000 unit SC Q8 [facility] Last Admin: 08/04/18 05:23 Dose: 5,000 unit Vancomycin IV Pharmacy to Dose (1,000 ea/ Sodium Chloride) 500 mls @ 250 mls/hr IV X1 PRN; Protocol PRN Reason: Rx to Dose Clindamycin Phosphate 600 mg/ (Dextrose) 54 mls @ 100 mls/hr IV Q8 [facility] Last Admin: 08/04/18 05:22 Dose: 100 mls/hr Vancomycin HCl 750 mg/ Sodium (Chloride) 265 mls @ 250 mls/hr IV Q12H [facility] Lactobacillus Acidophilus (Acidophilus) 1 tablet PO TID [facility] Last Admin: 08/04/18 05:23 Dose: 1 tablet Levothyroxine Sodium (Synthroid) 50 mcg PO DAILY@0600 [facility] Last Admin: 08/04/18 05:23 Dose: 50 mcg Magnesium Hydroxide (Milk Of Magnesia) 30 ml PO DAILY PRN PRN Reason: Constipation Multivitamins/Minerals (Multivitamin With Minerals) 1 tablet PO DAILYCM [facility] Last Admin: 08/04/18 08:11 Dose: 1 tablet Nutritional Formula (Lactose Free) (Ensure Enlive) 120 ml PO 4X/DAY [facility] Last Admin: 08/04/18 08:11 Dose: Not Given Ondansetron HCl (Zofran) 4 mg IV Q8H PRN PRN PRN Reason: Nausea Oxycodone HCl (Oxyir) 5 mg PO Q4H PRN PRN PRN Reason: Moderate Pain (pain scale 4-5) Last Admin: 08/04/18 02:54 Dose: 5 mg Potassium Chloride (K-Dur) 40 meq PO TID [facility] Last Admin: 08/04/18 05:23 Dose: 40 meq Promethazine HCl (Phenergan Tablet) 25 mg PO Q6H PRN PRN PRN Reason: NAUSEA Last Admin: 08/04/18 02:54 Dose: 25 mg Rizatriptan Benzoate (Maxalt) 10 mg PO DAILY PRN PRN PRN Reason: HEADACHE Sodium Chloride () 5 - 30 ml IV UD PRN PRN Reason: SALINE FLUSH Last Admin: 08/03/18 05:37 Dose: 20 ml Code Visit Inpatient E&M: 26032 Subs Hosp L2
--- NOTE | 2018-08-05 11:52 | NURSING ---
wound photo: left elbow
--- NOTE | 2018-08-05 11:53 | NURSING ---
wound photo: left hip
--- NOTE | 2018-08-05 11:53 | NURSING ---
wound photo: right medial thigh
[2018-08-05] MEDS: oxyCODONE 5 MG Tablet 10 MG PO ×3 (12:25→22:55)
--- NOTE | 2018-08-05 13:47 | PN.ID_ITS ---
Patient Problems: Active and Suspected Problems Hypokalemia (Acute) Cellulitis of left elbow (Acute) Acute renal failure (Acute) Subjective: Patient is alert overall clinically stable no gastrointestinal distress. Tolerating antimicrobial therapy well. Left elbow bursa drainage grew out group G strep. Objective: Alert and oriented does not appear toxic lungs are clear heart exam S1-S2 abdomen soft nontender left elbow forearm is swollen with mild erythema - Physical Exam Vital Signs Temp Pulse Resp BP Pulse Ox 97.6 F L 78 16 128/69 H 95 08/05/18 08:27 08/05/18 10:55 08/05/18 08:27 08/05/18 08:27 08/05/18 08:27 Oxygen Delivery Method Room Air Weight: 62.3 kg Body Mass Index (BMI) 25.9 Intake and Output for Last 24 Hours 08/03/18 08/04/18 08/05/18 23:59 23:59 23:59 Intake Total 1651.5 / 1651.5 1448.4 / 1448.4 980 / 980 Output Total 800 / 800 750 / 750 Balance 851.5 / 851.5 698.4 / 698.4 980 / 980 Microbiology Past 72 Hours 08/04/18 11:00 Gram Stain - Final Wound Drainage - Elbow Wound Culture - Preliminary Streptococcus group G Laboratory Tests Past 24 Hrs 08/03/18 08/04/18 08/05/18 05:40 11:00 05:25 [address] Review Reviewed Sodium 144 Potassium 5.8 H Chloride 110 H Carbon Dioxide 27.0 Anion Gap 7 BUN 14 Creatinine 0.55 Estim Creat Clear Calc 101.58 Est GFR (MDRD) Af Amer 155 Est GFR (MDRD) Non-Af 128 BUN/Creatinine Ratio 25.4 H Glucose 100 Calcium 9.1 S.aureus Protein A PCR POSITIVE H MRSA (PCR) POSITIVE H Medical Necessity - Tobacco Use Smoking Status: Current every day smoker Route of nutrition/ use of supplements: [] Nutritional Intake: [] IV Site: [] Odom Catheter: [] - Assessment/Plan Left septic olecranon bursitis with cellulitis. Drainage growing group G beta- hemolytic strep. At this point will treat with ceftriaxone 2 g IV daily plus clindamycin. Patient tells me that she is gone for surgical debridement of the bursa this coming .
[2018-08-05 15:09] LABS: Pathologist Review Reviewed
--- NOTE | 2018-08-05 19:22 | NURSING ---
Patient refusing 1700 Neurontin-wants it at hs like she takes it at home.
[2018-08-05] MEDS: Zolpidem Tartrate 5 MG Tablet PO (22:55)
[2018-08-05] MEDS: proMETHazine 25 MG Tablet PO (22:55)
[2018-08-06 03:02] VITALS: PULSE 106
[2018-08-06 04:40] VITALS: BP 143/91; PULSE 100; RESP 18; TEMP 36.3; O2SAT 97
[2018-08-06] MEDS: Levothyroxine 50 MCG Tablet PO (05:42)
[2018-08-06] MEDS: Pantoprazole Sodium 40 MG Tablet PO (05:42)
[2018-08-06] MEDS: oxyCODONE 5 MG Tablet 10 MG PO (05:43)
[2018-08-06] MEDS: Heparin Injection (Vial) 5,000 UNIT/ML VIAL 5000 UNIT SC (05:45)
--- NOTE | 2018-08-06 06:45 | NURSING ---
pt demanding to leave AMA. Pt states she has a family emergency but will not given reasons. Pt given the risks of signing out AMA. Given AMA forms to sign. This RN, charge accounts audit clerk, press manager and MD attempted to explain the risks of leaving. Pt still demanded to leave or she was going to pull her PICC line out herself.
--- NOTE | 2018-08-06 06:55 | PCM.DC.SUM ---
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 Operations: None, - - I&D of right foot abscess. Summary of Care Provided: The patient is a 42 year old F [] Home Medications: Medications to take at Discharge Esomeprazole Mag Trihydrate [Nexium] 40 mg PO DAILY 12/25/13 Levothyroxine [Synthroid] 50 mcg PO DAILY@0600 #30 tablet 02/04/14 Gabapentin [Neurontin] 1,200 mg PO TID 03/13/14 proMETHazine tablet [Phenergan tablet] 25 mg PO Q6H PRN PRN #12 tablet 11/30/14 Hydrochlorothiazide [Hctz] 25 mg PO DAILY 06/12/15 Duloxetine Hcl [Cymbalta] 30 mg PO DAILY 07/21/15 Sumatriptan Succinate [Imitrex] 50 mg PO PRN PRN 07/21/15 Ibuprofen [Motrin Ib] 400 - 600 mg PO 4X/DAY PRN #1 tablet 06/08/16 Primary Care Physician: Jim Mcfarland III, MD [Primary Care Provider] - Disposition: Against Medical Advice Minutes spent on discharge:: 15 Medical Necessity - Tobacco Use Smoking Status: Current every day smoker Meaningful Use Info Meaningful Use Diagnoses (Choose all that apply): None applicable Code Visit Inpatient E&M: 21495 Disch Hosp
--- NOTE | 2018-08-06 06:58 | PCM.DC.SUM ---
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 Operations: None, - - I&D of right foot abscess. Summary of Care Provided: The patient is a 42 year old F was being treated for sepsis secondary to Cellulitis of the left elbow with bursitis. Patient said she had a family emergency so she had to leave. Risk of leaving were discussed with patient. The patient pulled off a monitor car operator leads by herself. Patient stated that a PICC line should be pulled or else she will pull it by itself and leave. Accordingly nursing staff pulled PICC line and patient left AMA. Home Medications: Medications to take at Discharge Esomeprazole Mag Trihydrate [Nexium] 40 mg PO DAILY 12/25/13 Levothyroxine [Synthroid] 50 mcg PO DAILY@0600 #30 tablet 02/04/14 Gabapentin [Neurontin] 1,200 mg PO TID 03/13/14 proMETHazine tablet [Phenergan tablet] 25 mg PO Q6H PRN PRN #12 tablet 11/30/14 Hydrochlorothiazide [Hctz] 25 mg PO DAILY 06/12/15 Duloxetine Hcl [Cymbalta] 30 mg PO DAILY 07/21/15 Sumatriptan Succinate [Imitrex] 50 mg PO PRN PRN 07/21/15 Ibuprofen [Motrin Ib] 400 - 600 mg PO 4X/DAY PRN #1 tablet 06/08/16 Primary Care Physician: Jim Mcfarland III, MD [Primary Care Provider] - Disposition: Against Medical Advice Medical Necessity - Tobacco Use Smoking Status: Current every day smoker Meaningful Use Info Meaningful Use Diagnoses (Choose all that apply): None applicable Code Visit Inpatient E&M: 00258 Disch Hosp
--- NOTE | 2018-08-06 07:01 | DS.PCM_ITS ---
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 Operations: None, - - I&D of right foot abscess. Summary of Care Provided: The patient is a 42 year old F was being treated for sepsis secondary to Cellulitis of the left elbow with bursitis. Patient said she had a family emergency so she had to leave. Risk of leaving were discussed with patient. The patient pulled off a restaurant crew person leads by herself. Patient stated that a PICC line should be pulled or else she will pull it by itself and leave. Accordingly nursing staff pulled PICC line and patient left AMA. Home Medications: Medications to take at Discharge Esomeprazole Mag Trihydrate [Nexium] 40 mg PO DAILY 12/25/13 Levothyroxine [Synthroid] 50 mcg PO DAILY@0600 #30 tablet 02/04/14 Gabapentin [Neurontin] 1,200 mg PO TID 03/13/14 proMETHazine tablet [Phenergan tablet] 25 mg PO Q6H PRN PRN #12 tablet 11/30/14 Hydrochlorothiazide [Hctz] 25 mg PO DAILY 06/12/15 Duloxetine Hcl [Cymbalta] 30 mg PO DAILY 07/21/15 Sumatriptan Succinate [Imitrex] 50 mg PO PRN PRN 07/21/15 Ibuprofen [Motrin Ib] 400 - 600 mg PO 4X/DAY PRN #1 tablet 06/08/16 Primary Care Physician: Jim Mcfarland III, MD [Primary Care Provider] - Disposition: Against Medical Advice Medical Necessity - Tobacco Use Smoking Status: Current every day smoker Meaningful Use Info Meaningful Use Diagnoses (Choose all that apply): None applicable Code Visit Inpatient E&M: 46803 Disch Hosp
--- NOTE | 2018-08-06 07:58 | NURSING ---
0640 Was asked to see patient per her request. After entering room, patient states she wants her PICC line pulled out now, she has a family emergency with her daughter and is going to leave. Discussed with patient importance of IV antibiotics and risks of signing out AMA and not getting IV antibiotics set up as an outpatient. She is still demanding on going home. Discussed with her she would have to sign AMA papers. Discussed with patient I was going to get her primary nurse and the physician to talk to her.
== END 2018-08-06 06:55 | disposition left against medical advice (07) | DRG 871 ==
LOC: ED 23:39 → PCU 08-01 00:36
PROVIDERS: Internal Medicine; Admitting Provider Hospitalist; Emergency Provider Emergency Medicine; Family Provider Family Medicine; PCP Family Medicine; Visit Provider Internal Medicine
DX: A41.9 Sepsis, unspecified organism (principal); N17.0 Acute kidney failure with tubular necrosis; L03.114 Cellulitis of left upper limb; Q79.6 Ehlers-Danlos syndromes; M70.22 Olecranon bursitis, left elbow; E03.9 Hypothyroidism, unspecified; B95.62 Methicillin resistant Staphylococcus aureus infection as the cause of diseases classified elsewhere; D64.9 Anemia, unspecified; F32.9 Major depressive disorder, single episode, unspecified; L98.499 Non-pressure chronic ulcer of skin of other sites with unspecified severity; Z90.49 Acquired absence of other specified parts of digestive tract; Z93.2 Ileostomy status; F17.200 Nicotine dependence, unspecified, uncomplicated; I10 Essential (primary) hypertension
CPT/HCPCS: 36415; 36569; 73060; 73080; 80048; 80202; 82040; 82570; 83605; 83735; 84100; 84300; 85025; 85027; 87040; 87070; 87075; 87077; 87186; 87205; 87640; 97110; 97116; 97162; 97166; 97530; 97535; 97802; 99283; 99406; J7030; J7050; A4216; J0295; J0696; J2405